=== PATIENT | male | born 1960 | race Caucasian/White ===

== ENCOUNTER 2016-11-25 14:05 | Emergency (ER) | payer OTHER ==
[~2016-11-25] VITALS: Ht 175.3 cm; Wt 87.0 kg
[~2016-11-25 14:05] MED LIST: METO50TA16 PO; SIMV20TA2 PO; TACR1CAP5 PO
[2016-11-25 14:10] VITALS: Ht 175.3 cm; Wt 87.0 kg
[2016-11-25] MEDS ORDERED: AZAT50TA5 PO (14:35)
[2016-11-25] MEDS ORDERED: CEPHALEXIN MONOHYDRATE 250 MG CAP PO ONE (14:45)
[2016-11-25] MEDS ORDERED: SULFAMETHOXAZOLE/TRIMETHOPRIM DS 800/160MG TAB PO ONE (14:45)
[2016-11-25] MEDS ORDERED: XYLOCAINE 1%/SOD BICARB 20 ML VIAL INFIL ONE (14:45)
[2016-11-25] MEDS ORDERED: PRG1 PO (14:59)
[2016-11-25] MEDS ORDERED: SULF800T23 PO (15:24)
[2016-11-25] MEDS ORDERED: CEPH500C2 PO (15:24)
--- NOTE | 2016-11-25 15:25 | EMERGENCY ROOM VISIT NOTE ---
ED Visit Note First contact with patient: 14:18 CHIEF COMPLAINT: Draining lump on the mid back 4 days HISTORY OF PRESENT ILLNESS: Patient is a 56-year-old white male who presents to emergency department for evaluation of an abscess on his mid back that he noticed a couple of days ago. He states that he developed a lump on his upper back about 4-5 days ago. He states that last the it opened up and drained bloody puslike material. He notes that it is slightly tender. He denies a prior history of skin infections or abscesses. He denies any fever or chills. No fever, chills, or loss of appetite. Patient is not aware of any injury to the area preceding the infection. REVIEW OF SYSTEMS: Review of systems as per HPI. All other systems reviewed were negative. 10 systems reviewed. PMH: Electronic medical records are reviewed and summarized as above/below. See Problem List. SOCIAL HISTORY: Patient lives at home. Unemployed. Smoker. PHYSICAL EXAM: Vital Signs: Reviewed Nurse's notes. CONSTITUTIONAL: Patient is a well-appearing 56-year-old white male who is awake and alert and in no acute distress. INTEGUMENTARY: Examination of the patient's midline upper back show an erythematous, indurated cystic structure, with a scabbed over area centrally. Total diameter measures 6 cm, however the central portion is fluctuant. It is not actively draining. There is a zone of inflammation around it buy no lymphangitis. EMERGENCY DEPARTMENT COURSE: Using saline and Betadine cleansing, lidocaine anesthesia, and sterile technique, the abscess cavity was incised with a number 11 scalpel blade. Some purulent material was noted and was cultured, predominantly there was sebaceous material present, which was removed. The abscess cavity was irrigated copiously using normal saline solution, and then packed with plain gauze packing dipped in Betadine. Patient was placed on Keflex and Bactrim pending cultures. He was given his first dose in the emergency department. Differential diagnosis included abscess, infected sebaceous cyst, foreign body, among others. Wound care measures were discussed. He was encouraged to return to the emergency department in 48 hours for the results of his cultures and for packing removal. Problem List Medical Problems: (1) ASH (acute kidney injury) Status: Resolved (2) CAD (coronary artery disease) Status: Chronic (3) Chest wall pain Status: Resolved (4) Chronic back pain Status: Chronic (5) Chronic Hepatitis C W/O Hepatic Coma Status: Chronic (6) Chronic Kidney Disease, Unspecified Status: Chronic (7) Depressive Disorder Nec Status: Chronic (8) Hyperkalemia Status: Resolved (9) Hyperlipidemia Nec/Nos Status: Chronic (10) Hypertension Nos Status: Chronic (11) Hypothyroidism Nos Status: Chronic (12) Liver cancer Status: Resolved (13) UT (myocardial infarction) Status: Resolved (14) Pacemaker Status: Chronic (15) Precordial chest pain Status: Resolved (16) Spinal stenosis, lumbar region, with neurogenic claudication Status: Chronic (17) Symptomatic bradycardia Status: Resolved (18) Third degree heart block Status: Resolved Surgical Problems: (1) Cardiac Pacemaker In Situ Status: Chronic (2) H/O heart artery stent Status: Resolved (3) History of cervical spinal arthrodesis Status: Resolved (4) History of lumbar fusion Status: Resolved (5) Liver transplanted Status: Resolved (6) Presence Of Prosthetic Heart Valve Status: Resolved Current/Historical Medications Scheduled Azathioprine (Imuran), 50 MG PO DAILY Cephalexin Monohydrate (Keflex), 500 MG PO QID Levothyroxine Sodium (Levothyroxine Sodium), 25 MCG PO DAILY Lisinopril (Zestril), 10 MG PO DAILY Sulfa/Trimethoprim (Bactrim Ds 800MG/160MG), 1 TAB PO BID Tacrolimus (Tacrolimus), 4 MG PO BID Scheduled PRN Ibuprofen (Motrin), 400 MG PO TID PRN for Pain Allergies Coded Allergies: Codeine (Verified Allergy, Intermediate, RASH, N/V, 05/26/14) Acetaminophen (Verified Adverse Reaction, Unknown, LIVER DISEASE-PT CAN NOT TAKE D/T LIVER TRANSPLANT, 05/26/14) Vital Signs Date Time Temp Pulse Resp B/P Pulse Ox O2 Delivery O2 Flow Rate FiO2 11/25/16 15:54 36.6 88 16 145/66 96 11/25/16 14:10 36.6 108 16 159/98 94 Room Air Medications Administered Medications (Trade) Dose Ordered Sig/Juanita Route Start Time Stop Time Status Last Admin Dose Admin Lidocaine HCl (Buffered Lidocaine 1% Inj) 20 ml ONE ONCE INFIL 11/25/16 14:45 11/25/16 14:48 DC 11/25/16 15:01 20 ML Cephalexin Monohydrate (Keflex Cap) 500 mg NOW ONCE PO 11/25/16 14:45 11/25/16 14:48 DC 11/25/16 15:02 500 MG Trimethoprim/ Sulfamethoxazole (Septra Ds 800/ 160MG Tab) 1 tab NOW ONCE PO 11/25/16 14:45 11/25/16 14:48 DC 11/25/16 15:01 1 TAB Departure Information Impression Primary Impression: Infected sebaceous cyst Prescriptions Sulfa/Trimethoprim (Bactrim Ds 800MG/160MG) Tab 1 TAB PO BID, #20 TAB Prov: Lena Guardado PA 11/25/16 Cephalexin Monohydrate (KEFLEX) 500 Mg Cap 500 MG PO QID, #40 CAP Prov: Lena Guardado PA 11/25/16 Referrals Paul Angeles M.D.([facility]) (PCP) Patient Instructions My [facility] Additional Instructions Cephalexin(Keflex) 500mg: Take one pill four times daily for 10 days for your skin infection. All antibiotics can cause diarrhea. If this occurs and you feel worse or it does not resolve in 1-2 days follow up with your doctor or return to the Emergency Department as this could be signs of serious underlying problems. Any medication can cause an allergic reaction, stop the pills immediately and return to the ER for rash, hives, breathing difficulties, or swelling. Trimethoprim-Sulfamethoxazole(Bactrim DS): Take one pill twice daily for 10 days for your skin infection. All antibiotics can cause diarrhea. If this occurs and you feel worse or it does not resolve in 1-2 days follow up with your doctor or return to the Emergency Department as this could be signs of serious underlying problems. Any medication can cause an allergic reaction, stop the pills immediately and return to the ER for rash, hives, breathing difficulties, or swelling. Ibuprofen(Motrin, Advil) may be used for fever or pain. Use 600mg every six hours as needed. Take with food. Avoid using more than 2400mg in a 24 hour period. Do not use 2400mg per day for more than three consecutive days without physician direction. Prolonged inappropriate use can lead to stomach upset or ulcers. Warm compresses to the affected area 4 times daily for 15-20 minutes. Dressing changes daily, more often if it becomes saturated or soiled. May be the starting tomorrow. Be careful to not remove the packing material when bathing or changing the dressing. Rest and drink plenty of fluids. Continue current medications. Return to the ER in 48 hours for packing removal and wound recheck, immediately for severe pain, persistent fevers, spreading redness, or any worsening of your condition. Follow up with your primary physician next week for further care and management. You may need to be seen by surgery to have the entire cyst removed once the infection has resolved.
[2016-11-25 15:54] VITALS: BP 145/66; PULSE 88; TEMP 36.6; O2SAT 96
[2016-11-25] MEDS ORDERED: IBUP-1459 PO (21:19)
[2016-11-25] MEDS ORDERED: LEVO25TA5 PO (21:20)
[2016-11-25] MEDS ORDERED: LISI-461 PO (21:21)
[2017-02-08] MEDS ORDERED: LSN20 PO (15:28)
== END 2016-11-25 15:30 | disposition home or self-care (01) ==
LOC: C.EDB 14:08 → C.EDD 15:30
DX: L72.9 Follicular cyst of the skin and subcutaneous tissue, unspecified (principal); I12.9 Hypertensive chronic kidney disease with stage 1 through stage 4 chronic kidney disease, or unspecified chronic kidney disease; N18.9 Chronic kidney disease, unspecified; E78.5 Hyperlipidemia, unspecified; B18.2 Chronic viral hepatitis C; E03.9 Hypothyroidism, unspecified; I25.10 Atherosclerotic heart disease of native coronary artery without angina pectoris; F32.9 Major depressive disorder, single episode, unspecified; I25.2 Old myocardial infarction; G89.29 Other chronic pain; M48.06 Spinal stenosis, lumbar region; F17.200 Nicotine dependence, unspecified, uncomplicated; Z95.0 Presence of cardiac pacemaker; Z95.2 Presence of prosthetic heart valve; Z98.1 Arthrodesis status; Z98.61 Coronary angioplasty status; Z94.4 Liver transplant status; Z79.899 Other long term (current) drug therapy; Z88.5 Allergy status to narcotic agent; Z88.6 Allergy status to analgesic agent

== ENCOUNTER 2017-02-06 13:57 | Inpatient (IN) | payer OTHER ==
[~2017-02-06] VITALS: Ht 175.3 cm; Wt 87.1 kg
[~2017-02-06 13:57] MED LIST changes: +AZAT50TA5 PO; +CEPH500C2 PO; +IBUP-1459 PO; +LEVO25TA5 PO; +LISI-461 PO; -METO50TA16 PO; -SIMV20TA2 PO; +SULF800T23 PO; +TACR1CAP14 PO; -TACR1CAP5 PO
[2017-02-06] MEDS ORDERED: SODIUM CHLORIDE 0.9% 1000ML 1,000 ML IV STA (15:03)
[2017-02-06] MEDS ORDERED: NITROGLYCERIN OINT 2% 1GM PACKET EXT ONE (15:15)
--- NOTE | 2017-02-06 15:30 | DIAGNOSTIC IMAGING REPORT ---
CHEST ONE VIEW PORTABLE CLINICAL HISTORY: Atypical chest pain COMPARISON STUDY: 04/07/2016 FINDINGS: The heart is normal in size. There is no failure. There is no focal pulmonary consolidation. As a left subclavian dual-chamber central venous pacemaker present. There are postsurgical changes in the cervical spine. There is blunting of the left lateral costophrenic angle, possibly indicating a tiny effusion.[ IMPRESSION: Blunting of the left lateral costophrenic angle. Otherwise no acute findings. Electronically signed by: Rubens Barajas M.D. 02/06/2017 3:28 PM Dictated Date/Time: 02/06/2017 3:27 PM
[2017-02-06 15:43] LABS: URINE APPEARANCE CLEAR (CLEAR); URINE BILIRUBIN NEG (NEG); URINE COLOR YELLOW; URINE EPITHELIAL CELL AUTO 0-5 /lpf (0-5); URINE NITRITE NEG (NEG); URINE PH >= 9.0 (4.5-7.5); URINE SPECIFIC GRAVITY 1.013 (1.000-1.030); UROBILINOGEN NEG (NEG); ZZUR CULT IF INDIC CLEAN CATCH NO
[2017-02-06 15:46] LABS: BASO % 0.2 %; BASO ABS # 0.01 K/uL (0-0.2); COMPLETE YES; EOS % 2.1 %; HEMATOCRIT 45.4 % (42-52); IG% 0.4 %; LYMPH % 16.8 %; MEAN CELL VOLUME 92.5 fL (80-100); MEAN CORPUSCULAR HGB CONC 34.6 g/dl (32-36); MEAN PLATELET VOLUME 9.8 fL (7.4-10.4); MONO % 7.8 %; NEUT % 72.7 %; PLATELET COUNT 145 K/uL (130-400); RED BLOOD COUNT 4.91 M/uL (4.7-6.1); WHITE BLOOD COUNT 5.36 K/uL (4.8-10.8)
--- NOTE | 2017-02-06 15:52 | DIAGNOSTIC IMAGING REPORT ---
CT HEAD WITHOUT CONTRAST (CT) CLINICAL HISTORY: Headache COMPARISON STUDY: 05/26/2014 TECHNIQUE: Axial CT of the brain is performed from the vertex to the skull base. IV contrast was not administered for this examination. CT DOSE: 1755.62 mGy.cm FINDINGS: No intra or extra-axial mass lesions are visualized. There is no CT evidence of acute cortical infarction. There is no evidence of midline shift. There is no acute hemorrhage. No calvarial fractures are visualized. There is no evidence of pathologic ventricular dilatation. There is no evidence of acute sinusitis IMPRESSION: No acute intracranial findings Electronically signed by: Rubens Barajas M.D. 02/06/2017 3:50 PM Dictated Date/Time: 02/06/2017 3:48 PM
[2017-02-06 15:54] LABS: MANUAL MICROSCOPIC REQUIRED? NO; REVIEW REQ? NO; SULFASALICYLIC ACID NEG (NEG)
[2017-02-06 15:55] LABS: INR 0.9 (0.9-1.1); PROTHROMBIN TIME (PATIENT) 10.1 SECONDS (9.0-12.0)
[2017-02-06] MEDS ORDERED: METO50TA16 PO (15:59)
[2017-02-06] MEDS ORDERED: ATOR-22 PO (15:59)
--- NOTE | 2017-02-06 16:03 | DIAGNOSTIC IMAGING REPORT ---
ABDOMEN AND PELVIS CT WITHOUT CONTRAST CT DOSE: HISTORY: Generalized abdominal pain. Right-sided flank pain. TECHNIQUE: Multiaxial CT images of the abdomen and pelvis were performed without the use of intravenous and oral contrast according to the standard department stone protocol. COMPARISON STUDY: Abdomen and pelvis CT 05/21/2010. FINDINGS: The lung bases are clear. Pacemaker wires are noted. No pneumoperitoneum. No pneumatosis. Patchy sclerosis with the right femoral head consistent with avascular necrosis. Posterior decompression and fusion from L2 through S1 with pedicle screws and rods. There is also a small focal area of sclerosis within the left femoral head which may also represent an area of avascular necrosis. No evidence for femoral head collapse. Old, healed left-sided rib fractures. Normal bladder. Normal appendix. Status post liver transplant. The gallbladder is surgically absent. The spleen remains enlarged but is decreased in size compared the prior study. The spleen measures 13.5 cm in length. The adrenal glands, pancreas, and kidneys are unremarkable. No renal stones or hydronephrosis. Decrease in size in the splenic varices. No retroperitoneal lymphadenopathy. Small fat-containing umbilical hernia. The umbilical varices have almost completely resolved. Suboptimal evaluation for bowel pathology due to the lack of intravenous and oral contrast. However, there is no evidence for bowel obstruction. Fluid-filled colon. Mild superior endplate compression deformity at L5 is likely old. IMPRESSION: 1. Fluid-filled colon. This favors a gastroenteritis. 2. No evidence for bowel obstruction. 3. Status post liver transplant with improvement in the abdominal varices and splenomegaly. 4. Bilateral femoral head avascular necrosis, right greater than left. No evidence for femoral head collapse. 5. Additional findings as described above. Electronically signed by: Chan Flores M.D. 02/06/2017 4:01 PM Dictated Date/Time: 02/06/2017 3:49 PM
[2017-02-06] MEDS ORDERED: LABETALOL HCL IV 5 MG/ML 20ML IV STA (16:05)
[2017-02-06] MEDS ORDERED: ONDANSETRON INJ 2 MG/ML 2 ML VIAL IV STA (16:28)
[2017-02-06] MEDS ORDERED: MoRPHine SULFATE 4 MG/ML 1 ML CARP\\VIAL IV STA (16:28)
[2017-02-06 16:38] LABS: ALB/GLOB RATIO 1.1 (0.9-2); ALKALINE PHOSPHATASE 122 U/L (45-117); ALT/SGPT 58 U/L (12-78); AST/SGOT 45 U/L (15-37); BLOOD UREA NITROGEN 18 mg/dl (7-18); BUN/CREATININE RATIO 13.6 (10-20); C-REACTIVE PROTEIN < 0.29 mg/dl (0-0.29); CALCIUM 8.4 mg/dl (8.5-10.1); CHLORIDE 99 mmol/L (98-107); GLUCOSE 145 mg/dl (70-99); MAGNESIUM 2.3 mg/dl (1.8-2.4); POTASSIUM 3.7 mmol/L (3.5-5.1); SODIUM 144 mmol/L (136-145)
[2017-02-06 16:40] LABS: LYME DISEASE AB IGG NEG (NEG); LYME DISEASE AB IGM NEG (NEG)
[2017-02-06 16:47] LABS: CARBON DIOXIDE 42 mmol/L (21-32)
--- NOTE | 2017-02-06 16:48 | EMERGENCY ROOM VISIT NOTE ---
History First contact with patient: 14:47 Chief Complaint: PAIN (GENERALIZED) Stated Complaint: CHEST PAIN, REAL BAD HEADACHES History of Present Illness The patient is a 56 year old male who presents to the Emergency Department by private vehicle for evaluation of his chest pain and headaches. He's had headaches for the past 3 days. He reports that he developed chest pain last evening. He reports that to this point, his headache is worse than his chest pain. He does have a significant past medical history of HI 2 as well as a pacemaker in place secondary to complete heart block. He denies exertional pain. He reports a "stabbing" pain in his chest. In addition, he reports a lingering total headache rating his toe discomfort as a 9/10. The patient has a history is complicated by liver transplant performed at [facility] in 2009. He does take his antirejection medications daily. He does not take any medications for his blood pressure. Patient denies any fevers , chills, recent upper respiratory infections, blurry vision, double vision, slurred speech, facial droop, unilateral weakness/numbness, nausea, vomiting, or abdominal pain. He has reported some diarrhea most recently. Review of Systems A complete 10-point Review of Systems was discussed with the patient, with pertinent positives and negatives listed in the History of Present Illness. All remaining Review of Systems questions can be considered negative unless otherwise specified. Past Medical/Surgical History Medical Problems: (1) CAD (coronary artery disease) (2) Chest pain (3) Chest wall pain (4) Chronic back pain (5) Chronic Hepatitis C W/O Hepatic Coma (6) Chronic Kidney Disease, Unspecified (7) Cirrhosis of liver (8) CKD (chronic kidney disease), stage III (9) Complete heart block (10) Depressive Disorder Nec (11) DM type 2 (diabetes mellitus, type 2) (12) Dyslipidemia (13) Hepatitis C, chronic (14) Hepatocellular carcinoma (15) Hyperkalemia (16) Hyperlipidemia Nec/Nos (17) Hypertension Nos (18) Hypertensive urgency (19) Hypothyroidism Nos (20) Liver cancer (21) Long QT syndrome (22) Lumbago (23) HI (myocardial infarction) (24) Pacemaker (25) Pacemaker (26) Precordial chest pain (27) Spinal stenosis, lumbar region, with neurogenic claudication (28) Symptomatic bradycardia Surgical Problems: (1) Cardiac Pacemaker In Situ (2) H/O heart artery stent (3) H/O neck surgery (4) History of back surgery (5) History of cervical spinal arthrodesis (6) History of lumbar fusion (7) Liver transplanted (8) S/P coronary artery stent placement (9) S/P liver transplant Family History Patient reports no known family medical history. Social History Smoking Status: Current Every Day Smoker Smokeless Tobacco Use: No Alcohol Use: occasionally Drug Use: none Marital Status: Housing Status: other Occupation Status: other Current/Historical Medications Scheduled Aspirin (Ecotrin Low Strength), 1 TAB PO DAILY Atorvastatin (Lipitor), 20 MG PO QAM Azathioprine (Imuran), 50 MG PO DAILY Citalopram Hydrobromide (Celexa), 20 MG PO DAILY Levothyroxine Sodium (Levothyroxine Sodium), 25 MCG PO DAILY Lisinopril (Zestril), 10 MG PO DAILY Metoprolol Tartrate (Lopressor) (Lopressor), 50 MG PO BID Multivitamin (Multivitamin), 1 TAB PO DAILY Ranitidine (Zantac), 150 MG PO BID Tacrolimus (Tacrolimus), 4 MG PO BID Scheduled PRN Nitroglycerin (Nitrostat), 0.4 MG UT UD PRN for Chest Pain Allergies Coded Allergies: Codeine (Verified Allergy, Intermediate, RASH, N/V, 02/06/17) Acetaminophen (Verified Adverse Reaction, Unknown, LIVER DISEASE-PT CAN NOT TAKE D/T LIVER TRANSPLANT, 02/06/17) Physical Exam Vital Signs Date Time Temp Pulse Resp B/P Pulse Ox O2 Delivery O2 Flow Rate FiO2 02/06/17 17:52 99 Room Air 02/06/17 17:20 81 02/06/17 17:15 78 16 156/96 99 Nasal Cannula 4.0 02/06/17 17:01 Nasal Cannula 4.0 02/06/17 17:01 82 20 155/101 93 Room Air 02/06/17 16:45 79 16 157/95 95 Room Air 02/06/17 16:30 79 16 175/93 96 Room Air 02/06/17 16:17 94 16 157/107 96 Room Air 02/06/17 15:52 94 16 195/118 96 Room Air 02/06/17 14:55 96 Room Air 02/06/17 14:53 95 24 205/132 96 Room Air 02/06/17 13:59 36.9 60 20 201/134 96 Room Air Pain Rating (0-10): 9 Physical Exam VITAL SIGNS - Vital signs and nursing notes were reviewed. GENERAL - 56-year-old male appearing his stated age who is in no acute distress. Communicates well with provider and answers questions appropriately. HEAD - Normocephalic, Atraumatic. No Camargo's Sign or Raccoon's Eyes. No depressed skull fractures palpable. EYES - PERRL with EOMI bilaterally. Sclera anicteric. Palpebral conjunctiva pink and moist with no injection noted. EARS - No deformities of external structures noted on gross examination bilaterally. No pain elicited with palpation of the tragus bilaterally. External auditory canals without discharge or otorrhea. Tympanic membranes pearly gonzalez without retraction or bulging. NOSE - Midline and without cyanosis. No epistaxis or purulent drainage noted. Septum midline without deviation or septal hematoma noted. MOUTH/OROPHARYNX - Without perioral cyanosis. Buccal mucosa pink and moist and without leukoplakia. Tongue midline with equal elevation of palate bilaterally. No tonsillar hypertrophy, erythema, or exudates noted NECK - Neck with FROM. Supple to palpation. No lymphadenopathy noted. No nuchal rigidity. LUNGS - Chest wall symmetric without accessory muscle use, intercostals retractions, or central cyanosis. Normal vesicular breath sounds CTA B/L. No wheezes, rales, or rhonchi appreciated. CARDIAC - RRR with S1/S2. No murmur, rubs, or gallops appreciated. ABDOMEN - Abdominal contour flat and without pulsations or visible masses. BS normoactive all four quadrants. No tenderness, palpable masses, hepatosplenomegaly, or ascites noted. EXTREMITIES - No pretibial edema present. +3/5 radial and dorsalis pedis pulses palpated throughout. FROM with no tremors, fasciculations, or clonus noted on PROM throughout. +5/5 strength noted in UE/LE bilaterally. NEUROLOGIC - Cranial nerves II through XII grossly intact. Sensory intact to light touch throughout. Patellar reflexes +2/4. Patient able to perform rapid alternating movements appropriately. Negative Pronator Drift. PSYCH - A&Ox3 and cooperates fully with examiner. Pt is very pleasant and interacts well with examiner. Medical Decision & Procedures ER Provider Diagnostic Interpretation: Radiological imaging and reports were reviewed by myself. Radiologist's Interpretation as follows: CT HEAD WITHOUT CONTRAST (CT) CLINICAL HISTORY: Headache COMPARISON STUDY: 05/26/2014 TECHNIQUE: Axial CT of the brain is performed from the vertex to the skull base. IV contrast was not administered for this examination. CT DOSE: 1755.62 mGy.cm FINDINGS: No intra or extra-axial mass lesions are visualized. There is no CT evidence of acute cortical infarction. There is no evidence of midline shift. There is no acute hemorrhage. No calvarial fractures are visualized. There is no evidence of pathologic ventricular dilatation. There is no evidence of acute sinusitis IMPRESSION: No acute intracranial findings CHEST ONE VIEW PORTABLE CLINICAL HISTORY: Atypical chest pain COMPARISON STUDY: 04/07/2016 FINDINGS: The heart is normal in size. There is no failure. There is no focal pulmonary consolidation. As a left subclavian dual-chamber central venous pacemaker present. There are postsurgical changes in the cervical spine. There is blunting of the left lateral costophrenic angle, possibly indicating a tiny effusion.[ IMPRESSION: Blunting of the left lateral costophrenic angle. Otherwise no acute findings. ABDOMEN AND PELVIS CT WITHOUT CONTRAST CT DOSE: HISTORY: Generalized abdominal pain. Right-sided flank pain. TECHNIQUE: Multiaxial CT images of the abdomen and pelvis were performed without the use of intravenous and oral contrast according to the standard department stone protocol. COMPARISON STUDY: Abdomen and pelvis CT 05/21/2010. FINDINGS: The lung bases are clear. Pacemaker wires are noted. No pneumoperitoneum. No pneumatosis. Patchy sclerosis with the right femoral head consistent with avascular necrosis. Posterior decompression and fusion from L2 through S1 with pedicle screws and rods. There is also a small focal area of sclerosis within the left femoral head which may also represent an area of avascular necrosis. No evidence for femoral head collapse. Old, healed left-sided rib fractures. Normal bladder. Normal appendix. Status post liver transplant. The gallbladder is surgically absent. The spleen remains enlarged but is decreased in size compared the prior study. The spleen measures 13.5 cm in length. The adrenal glands, pancreas, and kidneys are unremarkable. No renal stones or hydronephrosis. Decrease in size in the splenic varices. No retroperitoneal lymphadenopathy. Small fat-containing umbilical hernia. The umbilical varices have almost completely resolved. Suboptimal evaluation for bowel pathology due to the lack of intravenous and oral contrast. However, there is no evidence for bowel obstruction. Fluid-filled colon. Mild superior endplate compression deformity at L5 is likely old. IMPRESSION: 1. Fluid-filled colon. This favors a gastroenteritis. 2. No evidence for bowel obstruction. 3. Status post liver transplant with improvement in the abdominal varices and splenomegaly. 4. Bilateral femoral head avascular necrosis, right greater than left. No evidence for femoral head collapse. 5. Additional findings as described above. Laboratory Results 02/06/17 15:20 Red Blood Count 4.91, Mean Corpuscular Volume 92.5, Mean Corpuscular Hemoglobin 32.0, Mean Corpuscular Hemoglobin Concent 34.6, Mean Platelet Volume 9.8, Neutrophils (%) (Auto) 72.7, Lymphocytes (%) (Auto) 16.8, Monocytes (%) (Auto) 7.8, Eosinophils (%) (Auto) 2.1, Basophils (%) (Auto) 0.2, Neutrophils # (Auto) 3.90, Lymphocytes # (Auto) 0.90, Monocytes # (Auto) 0.42, Eosinophils # (Auto) 0.11, Basophils # (Auto) 0.01 02/06/17 15:20 Test 02/06/17 00:00 02/06/17 15:20 02/06/17 17:58 Carboxyhemoglobin 2.7 % THgb White Blood Count 5.36 K/uL (4.8-10.8) Red Blood Count 4.91 M/uL (4.7-6.1) Hemoglobin 15.7 g/dL (14.0-18.0) Hematocrit 45.4 % (42-52) Mean Corpuscular Volume 92.5 fL (80-100) Mean Corpuscular Hemoglobin 32.0 pg (25-34) Mean Corpuscular Hemoglobin Concent 34.6 g/dl (32-36) Platelet Count 145 K/uL (130-400) Mean Platelet Volume 9.8 fL (7.4-10.4) Neutrophils (%) (Auto) 72.7 % Lymphocytes (%) (Auto) 16.8 % Monocytes (%) (Auto) 7.8 % Eosinophils (%) (Auto) 2.1 % Basophils (%) (Auto) 0.2 % Neutrophils # (Auto) 3.90 K/uL (1.4-6.5) Lymphocytes # (Auto) 0.90 K/uL (1.2-3.4) Monocytes # (Auto) 0.42 K/uL (0.11-0.59) Eosinophils # (Auto) 0.11 K/uL (0-0.5) Basophils # (Auto) 0.01 K/uL (0-0.2) RDW Standard Deviation 43.9 fL (36.4-46.3) RDW Coefficient of Variation 12.9 % (11.5-14.5) Immature Granulocyte % (Auto) 0.4 % Immature Granulocyte # (Auto) 0.02 K/uL (0.00-0.02) Erythrocyte Sedimentation Rate 18 mm/hr (0-14) Prothrombin Time 10.1 SECONDS (9.0-12.0) Prothromb Time International Ratio 0.9 (0.9-1.1) Activated Partial Thromboplast Time 27.2 SECONDS (21.0-31.0) Partial Thromboplastin Ratio 1.0 Urine Color YELLOW Urine Appearance CLEAR (CLEAR) Urine pH >= 9.0 (4.5-7.5) Urine Specific [place] 1.013 (1.000-1.030) Urine Protein NEG (NEG) Urine Glucose (UA) NEG (NEG) Urine Ketones NEG (NEG) Urine Occult Blood NEG (NEG) Urine Nitrite NEG (NEG) Urine Bilirubin NEG (NEG) Urine Urobilinogen NEG (NEG) Urine Leukocyte Esterase NEG (NEG) Urine WBC (Auto) 0 /hpf (0-5) Urine RBC (Auto) 0-4 /hpf (0-4) Urine Hyaline Casts (Auto) 0 /lpf (0-5) Urine Epithelial Cells (Auto) 0-5 /lpf (0-5) Urine Bacteria (Auto) NEG (NEG) Anion Gap 3.0 mmol/L (3-11) Est Creatinine Clear Calc Drug Dose 72.0 ml/min Estimated GFR () 71.7 Estimated GFR (Non- 61.9 BUN/Creatinine Ratio 13.6 (10-20) Calcium Level 8.4 mg/dl (8.5-10.1) Magnesium Level 2.3 mg/dl (1.8-2.4) Total Bilirubin 0.3 mg/dl (0.2-1) Aspartate Amino Transf (AST/SGOT) 45 U/L (15-37) Alanine Aminotransferase (ALT/SGPT) 58 U/L (12-78) Alkaline Phosphatase 122 U/L (45-117) C-Reactive Protein < 0.29 mg/dl (0-0.29) Total Protein 7.3 gm/dl (6.4-8.2) Albumin 3.8 gm/dl (3.4-5.0) Globulin 3.5 gm/dl (2.5-4.0) Albumin/Globulin Ratio 1.1 (0.9-2) Lipase 162 U/L (73-393) Thyroid Stimulating Hormone (TSH) 4.090 uIu/ml (0.300-4.500) Chemistry Specimen Hemolysis Urine Opiates Screen NEG (NEG) Urine Methadone, Qualitative NEG (NEG) Urine Barbiturates NEG (NEG) Urine Phencyclidine (PCP) Level NEG (NEG) Ur Amphetamine/Methamphetamine NEG (NEG) MDMA (Ecstasy) Screen NEG (NEG) Urine Benzodiazepines Screen NEG (NEG) Urine Cocaine Metabolite NEG (NEG) Urine Marijuana (THC) NEG (NEG) Lyme Disease IgG Antibody NEG (NEG) Lyme Disease IgM Antibody NEG (NEG) Venous Blood pH 7.51 (7.36-7.41) Venous Blood Partial Pressure CO2 51 mmHg (38.0-50.0) Venous Blood Partial Pressure O2 61 mmHg Venous Blood HCO3 40 mmol/L Venous Blood Oxygen Saturation 90.7 % Venous Blood Base Excess 14.4 mmol/L Medications Administered Medications (Trade) Dose Ordered Sig/Juanita Route Start Time Stop Time Status Last Admin Dose Admin Nitroglycerin 1 inch 1 inch NOW ONCE EXT 02/06/17 15:15 02/06/17 15:16 DC 02/06/17 15:24 1 INCH Sodium Chloride (Nss 1000ml) 1,000 ml @ 80 mls/hr [id number] STAT IV 02/06/17 15:03 02/06/17 19:38 DC 02/06/17 15:52 80 MLS/HR Labetalol HCl (Normodyne IV) 10 mg NOW STAT IV 02/06/17 16:05 02/06/17 16:07 DC 02/06/17 16:17 10 MG Morphine Sulfate (MoRPHine SULFATE INJ) 4 mg NOW STAT IV 02/06/17 16:28 02/06/17 16:29 DC 02/06/17 16:44 4 MG Ondansetron HCl (Zofran Inj) 4 mg NOW STAT IV 02/06/17 16:28 02/06/17 16:29 DC 02/06/17 16:43 4 MG Procedure Patient was placed on the environmental monitoring technician and monitored throughout the entire extent of their stay. In addition, the patient's pulse oximetry was monitored throughout the entire stay. Any abnormalities or aberrancies were addressed appropriately. ECG Indication: chest pain Rate (beats per minute): 95 Rhythm: other Findings: paced rhythm (replaced SR noted on 04/07/2016.) ED Course Patient was seen and evaluated by myself. Labs were drawn, saline lock in place. Previous or department visit notes were reviewed. CT the head and abdomen were obtained. Chest x-ray and EKGs were obtained. Patient was treated with 1 inch of Nitropaste. Maintenance fluids at 80 mL per hour were initiated. Upon return from CT, the patient is still having elevated blood pressure despite the nitroglycerin. Patient was treated with 10 mg labetalol intravenously. Imaging results above. Laboratory results demonstrate no acute leukocytosis, worrisome anemia, or bandemia. The patient has no significant electrolyte abnormalities. Patient was reevaluated and still has a headache, but reports that his chest pain has improved. He was treated with 4 mg morphine and 4 mg Zofran. Troponin is borderline. Remaining cardiac enzymes are negative. CO2 was elevated. Carboxyhemoglobin and VBG were ordered. Case was discussed with case management. Patient was admitted to [facility] for further evaluation and management. Patient admitted in stable condition. Medical Decision Given the patient's presentation and stated complaint, I did elect to perform the above-mentioned workup. The patient resents to the emergency Department with complaints of chest pain as well as a headache. The patient has a couple. Past medical history as reported in history of present illness. His exam is otherwise unremarkable. He has no focal neurological deficits. CT the brain was unremarkable. CT the head and pelvis didn't straight no acute findings. He has no fever leukocytosis. He has no meningeal findings on exam. His chest pain resolved with decrease in his blood pressure as well as vasodilation with nitroglycerin. Patient's headache resolved with IV pain medication. He was found to have an elevated CO2 level which is certainly interesting given the fact patient is not acidotic or have any neurological changes. He has been reportedly sleepy lately. He reports he is here which is been using his bedroom recently. VBG and carboxyhemoglobin were added. Patient was admitted in stable condition to the [facility]. In the evaluation and treatment of this patient, the following differential diagnoses were considered: Migraine Headache, Intracranial Hemorrhage, Subdural Hematoma, Subarachnoid Hemorrhage, Cerebral Aneurysm, Temporal/Giant Cell Arteritis, Tension Headache, Meningitis, Encephalitis, Hydrocephalus, HI, ASC, Dysrhythmia, Angina, Mediastinitis, GERD, Esophagitis, PE, Pneumonia, Bronchitis , Costochondritis, Rib Fracture, Zoster. Impression Primary Impression: Chest pain Additional Impressions: Hypertension Headache Departure Information Dispostion Admitted as an inpatient Condition FAIR Referrals Paul Angeles M.D.([facility]) (PCP) Patient Instructions My [facility] Problem Qualifiers Primary Impression: Chest pain Chest pain type: precordial pain Qualified Codes: R07.2 - Precordial pain Additional Impressions: Hypertension Hypertension type: essential hypertension Qualified Codes: I10 - Essential ( primary) hypertension Headache Headache type: unspecified Headache chronicity pattern: unspecified pattern Intractability: not intractable Qualified Codes: R51 - Headache
[2017-02-06 17:52] VITALS: O2SAT 99; Ht 175.3 cm; Wt 87.1 kg
[2017-02-06 18:14] LABS: VEN BLD GAS O2 SATURATION 90.7 %; VEN BLOOD GAS BASE EXCESS 14.4 mmol/L
[2017-02-06] MEDS ORDERED: ONDANSETRON INJ 2 MG/ML 2 ML VIAL IV PRN (18:30)
[2017-02-06] MEDS ORDERED: CITA20TA9 PO (18:44)
[2017-02-06] MEDS ORDERED: NTRSLP4 UT (18:44)
[2017-02-06] MEDS ORDERED: ZNTT/150 PO (18:44)
[2017-02-06] MEDS ORDERED: ASPI-428 PO (18:44)
[2017-02-06] MEDS ORDERED: MULT-506 PO (18:44)
[2017-02-06] MEDS ORDERED: NITROGLYCERIN OINT 2% 1GM PACKET EXT SCH (18:45)
[2017-02-06] MEDS ORDERED: GLUCOSE 10 TABS/TUBE PO PRN (18:45)
[2017-02-06] MEDS ORDERED: GLUCAGON FOR INJ 1 MG VIAL SQ PRN (18:45)
[2017-02-06] MEDS ORDERED: GLUCOSE 40% GEL 15 GM TUBE PO PRN (18:45)
[2017-02-06] MEDS ORDERED: DEXTROSE 50% 50 ML SYR IV PRN (18:45)
[2017-02-06 19:15] VITALS: BP 165/98; PULSE 78; TEMP 36.8; O2SAT 99
[2017-02-06] MEDS ORDERED: PROCHLORPERAZINE INJ 10 MG in SYRINGE 8 ML IV STA (19:36)
[2017-02-06] MEDS ORDERED: DiphenhydrAMINE HCL 50 MG/ML VIAL IV STA (19:38)
[2017-02-06] MEDS ORDERED: ASPIRIN 81 MG CHEW PO STA (19:38)
--- NOTE | 2017-02-06 19:43 | History and Physical ---
History & Physical Date & Time of Service: Feb 06, 2017 at 18:45 Chief Complaint: Chest Pain, Real Bad Headaches Primary Care Physician: Paul Angeles M.D.([facility]) History of Present Illness Source: patient, clinic records, hospital records This is a 56 year old male with PMH of CAD s/p stent in 2010, long QT syndrome, s/p pacemaker, h/o hepatitis C resulting in cirrhosis complicated by HCC s/p liver transplant, hyperlipidemia, DM type 2, CKD stage III, who presents to the ED with chest pain and headache. Patient states he was sleeping for past 3 days and only got up to drink water. He did not take his medications for past 3 days. He was feeling normal before 3 days ago. Then yesterday he awoke with headache and chest pain. Pt states PORTER is worse than chest pain. PORTER is located in frontal and behind the bilateral orbits initially rated 10/10 now rated 9/10 after morphine given in ER. Denies prior PORTER's. He did not take medication for it at home. Pt reports left sided chest pain described as "sharp" and "tight" which is nonradiating. Not related to exertion. He thinks nitro paste in ER may have helped. Chest pain is now 5/10. Pt reports associated diaphoresis. Pt reports multiple episodes of liquid diarrhea yesterday and once today. Had abdominal cramping which was relieved with BM. Feeling mildly nauseous without vomiting. SOB is unchanged from baseline. Denies dizziness, vision change, weakness, numbness, speech difficulty, URI symptoms, cough, vomiting, hematochezia, melena, dysuria, frequency, edema, calf pain. He admits to using a space heater in his apartment. Pt was on antibiotics 1 month ago for infected skin cyst. No recent travel or sick contact. Pt was hospitalized back in Nov 2015 for chest pain, was seen by cardiology, had negative stress test. Past Medical/Surgical History Medical Problems: (1) CAD (coronary artery disease) Status: Chronic (2) Chest wall pain Status: Resolved (3) Chronic back pain Status: Chronic (4) Chronic Hepatitis C W/O Hepatic Coma Status: Chronic (5) Chronic Kidney Disease, Unspecified Status: Chronic (6) Cirrhosis of liver Status: Chronic (7) CKD (chronic kidney disease), stage III Status: Chronic (8) Complete heart block Status: Chronic (9) Depressive Disorder Nec Status: Chronic (10) DM type 2 (diabetes mellitus, type 2) Status: Chronic (11) Dyslipidemia Status: Chronic (12) Hepatitis C, chronic Status: Chronic (13) Hepatocellular carcinoma Status: Chronic (14) Hyperkalemia Status: Resolved (15) Hyperlipidemia Nec/Nos Status: Chronic (16) Hypertension Nos Status: Chronic (17) Hypothyroidism Nos Status: Chronic (18) Liver cancer Status: Resolved (19) Long QT syndrome Status: Chronic (20) Lumbago Status: Chronic (21) OR (myocardial infarction) Status: Resolved (22) Pacemaker Status: Chronic (23) Pacemaker Status: Chronic (24) Precordial chest pain Status: Resolved (25) Spinal stenosis, lumbar region, with neurogenic claudication Status: Chronic (26) Symptomatic bradycardia Status: Resolved Surgical Problems: (1) Cardiac Pacemaker In Situ Status: Chronic (2) H/O heart artery stent Status: Resolved (3) H/O neck surgery Status: Chronic (4) History of back surgery Status: Chronic (5) History of cervical spinal arthrodesis Status: Resolved (6) History of lumbar fusion Status: Resolved (7) Liver transplanted Status: Resolved (8) S/P coronary artery stent placement Status: Chronic (9) S/P liver transplant Status: Chronic Family History FH: COPD (chronic obstructive pulmonary disease) FATHER Social History Smoking Status: Current Every Day Smoker (1 pack per day) Smokeless Tobacco Use: No Alcohol Use: none Drug Use: none, other (pt denies drug use, however history of drug abuse noted in Epic) Housing status: lives with roommate Occupational Status: other Immunizations History of Influenza Vaccine: Yes History of Tetanus Vaccine?: Yes History of Pneumococcal: Yes History of Hepatitis B Vaccine: Yes Multi-Drug Resistant Organisms History of MDRO: No Allergies Coded Allergies: Codeine (Verified Allergy, Intermediate, RASH, N/V, 02/06/17) Acetaminophen (Verified Adverse Reaction, Unknown, LIVER DISEASE-PT CAN NOT TAKE D/T LIVER TRANSPLANT, 02/06/17) Home Medications Scheduled Aspirin (Ecotrin Low Strength), 1 TAB PO DAILY Atorvastatin (Lipitor), 20 MG PO QAM Azathioprine (Imuran), 50 MG PO DAILY Citalopram Hydrobromide (Celexa), 20 MG PO DAILY Levothyroxine Sodium (Levothyroxine Sodium), 25 MCG PO DAILY Lisinopril (Zestril), 10 MG PO DAILY Metoprolol Tartrate (Lopressor) (Lopressor), 50 MG PO BID Multivitamin (Multivitamin), 1 TAB PO DAILY Ranitidine (Zantac), 150 MG PO BID Tacrolimus (Tacrolimus), 4 MG PO BID Scheduled PRN Nitroglycerin (Nitrostat), 0.4 MG UT UD PRN for Chest Pain Review of Systems Ten point ROS performed with pertinent positives and negatives noted in HPI. Physical Exam Vital Signs Date Time Temp Pulse Resp B/P Pulse Ox O2 Delivery O2 Flow Rate FiO2 02/06/17 18:36 78 16 157/102 99 Room Air 02/06/17 17:52 99 Room Air 02/06/17 17:20 81 02/06/17 17:15 78 16 156/96 99 Nasal Cannula 4.0 02/06/17 17:01 Nasal Cannula 4.0 02/06/17 17:01 82 20 155/101 93 Room Air 02/06/17 16:45 79 16 157/95 95 Room Air 02/06/17 16:30 79 16 175/93 96 Room Air 02/06/17 16:17 94 16 157/107 96 Room Air 02/06/17 15:52 94 16 195/118 96 Room Air 02/06/17 14:55 96 Room Air 02/06/17 14:53 95 24 205/132 96 Room Air 02/06/17 13:59 36.9 60 20 201/134 96 Room Air General Appearance: + pertinent finding (alert 56 year old male, lying in bed, no distress) Head: normocephalic, atraumatic Eyes: normal inspection, PERRL, EOMI ENT: hearing grossly normal, pharynx normal Neck: supple, trachea midline, + pertinent finding (no neck stiffness, meningeal testing negative) Respiratory/Chest: lungs clear, normal breath sounds Cardiovascular: regular rate, rhythm, no murmur Abdomen/GI: normal bowel sounds, non tender, soft Extremities/Musculoskelatal: no calf tenderness, no pedal edema Neurologic/Psych: licensed nursing assistant II-XII nml as tested, no motor/sensory deficits ( strength 5/5 all extremities, sensation to light touch grossly intact all extremities), alert, normal mood/affect, oriented x 3, + pertinent finding (no pronator drift) Skin: normal color, warm/dry Diagnostics Laboratory Results Results Past 24 Hours Test 02/06/17 00:00 02/06/17 15:20 02/06/17 17:58 Range/Units Carboxyhemoglobin 2.7 % THgb White Blood Count 5.36 4.8-10.8 K/uL Red Blood Count 4.91 4.7-6.1 M/uL Hemoglobin 15.7 14.0-18.0 g/dL Hematocrit 45.4 42-52 % Mean Corpuscular Volume 92.5 80-100 fL Mean Corpuscular Hemoglobin 32.0 25-34 pg Mean Corpuscular Hemoglobin Concent 34.6 32-36 g/dl Platelet Count 145 130-400 K/uL Mean Platelet Volume 9.8 7.4-10.4 fL Neutrophils (%) (Auto) 72.7 % Lymphocytes (%) (Auto) 16.8 % Monocytes (%) (Auto) 7.8 % Eosinophils (%) (Auto) 2.1 % Basophils (%) (Auto) 0.2 % Neutrophils # (Auto) 3.90 1.4-6.5 K/uL Lymphocytes # (Auto) 0.90 1.2-3.4 K/uL Monocytes # (Auto) 0.42 0.11-0.59 K/uL Eosinophils # (Auto) 0.11 0-0.5 K/uL Basophils # (Auto) 0.01 0-0.2 K/uL RDW Standard Deviation 43.9 36.4-46.3 fL RDW Coefficient of Variation 12.9 11.5-14.5 % Immature Granulocyte % (Auto) 0.4 % Immature Granulocyte # (Auto) 0.02 0.00-0.02 K/uL Erythrocyte Sedimentation Rate 18 0-14 mm/hr Prothrombin Time 10.1 9.0-12.0 SECONDS Prothromb Time International Ratio 0.9 0.9-1.1 Activated Partial Thromboplast Time 27.2 21.0-31.0 SECONDS Partial Thromboplastin Ratio 1.0 Urine Color YELLOW Urine Appearance CLEAR CLEAR Urine pH >= 9.0 4.5-7.5 Urine Specific Union 1.013 1.000-1.030 Urine Protein NEG NEG Urine Glucose (UA) NEG NEG Urine Ketones NEG NEG Urine Occult Blood NEG NEG Urine Nitrite NEG NEG Urine Bilirubin NEG NEG Urine Urobilinogen NEG NEG Urine Leukocyte Esterase NEG NEG Urine WBC (Auto) 0 0-5 /hpf Urine RBC (Auto) 0-4 0-4 /hpf Urine Hyaline Casts (Auto) 0 0-5 /lpf Urine Epithelial Cells (Auto) 0-5 0-5 /lpf Urine Bacteria (Auto) NEG NEG Sodium Level 144 136-145 mmol/L Potassium Level 3.7 3.5-5.1 mmol/L Chloride Level 99 98-107 mmol/L Carbon Dioxide Level 42 21-32 mmol/L Anion Gap 3.0 3-11 mmol/L Blood Urea Nitrogen 18 7-18 mg/dl Creatinine 1.30 0.60-1.40 mg/dl Est Creatinine Clear Calc Drug Dose 72.0 ml/min Estimated GFR () 71.7 Estimated GFR (Non- 61.9 BUN/Creatinine Ratio 13.6 10-20 Random Glucose 145 70-99 mg/dl Calcium Level 8.4 8.5-10.1 mg/dl Magnesium Level 2.3 1.8-2.4 mg/dl Total Bilirubin 0.3 0.2-1 mg/dl Aspartate Amino Transf (AST/SGOT) 45 15-37 U/L Alanine Aminotransferase (ALT/SGPT) 58 12-78 U/L Alkaline Phosphatase 122 45-117 U/L Total Creatine Kinase 104 39-308 U/L Creatine Kinase MB 2.1 0.5-3.6 ng/ml Creatine Kinase MB Ratio 2.0 0-3.0 Troponin I 0.045 0-0.045 ng/ml C-Reactive Protein < 0.29 0-0.29 mg/dl Total Protein 7.3 6.4-8.2 gm/dl Albumin 3.8 3.4-5.0 gm/dl Globulin 3.5 2.5-4.0 gm/dl Albumin/Globulin Ratio 1.1 0.9-2 Lipase 162 73-393 U/L Thyroid Stimulating Hormone (TSH) 4.090 0.300-4.500 uIu/ml Chemistry Specimen Hemolysis Lyme Disease IgG Antibody NEG NEG Lyme Disease IgM Antibody NEG NEG Venous Blood pH 7.51 7.36-7.41 Venous Blood Partial Pressure CO2 51 38.0-50.0 mmHg Venous Blood Partial Pressure O2 61 mmHg Venous Blood HCO3 40 mmol/L Venous Blood Oxygen Saturation 90.7 % Venous Blood Base Excess 14.4 mmol/L Microbiology Results 02/06/17 Blood Culture, Dave Batch Pending 02/06/17 Blood Culture, Dave Batch Pending Diagnostic Radiology CT HEAD WITHOUT CONTRAST (CT) CLINICAL HISTORY: Headache COMPARISON STUDY: 05/26/2014 TECHNIQUE: Axial CT of the brain is performed from the vertex to the skull base. IV contrast was not administered for this examination. CT DOSE: 1755.62 mGy.cm FINDINGS: No intra or extra-axial mass lesions are visualized. There is no CT evidence of acute cortical infarction. There is no evidence of midline shift. There is no acute hemorrhage. No calvarial fractures are visualized. There is no evidence of pathologic ventricular dilatation. There is no evidence of acute sinusitis IMPRESSION: No acute intracranial findings CHEST ONE VIEW PORTABLE CLINICAL HISTORY: Atypical chest pain COMPARISON STUDY: 04/07/2016 FINDINGS: The heart is normal in size. There is no failure. There is no focal pulmonary consolidation. As a left subclavian dual-chamber central venous pacemaker present. There are postsurgical changes in the cervical spine. There is blunting of the left lateral costophrenic angle, possibly indicating a tiny effusion.[ IMPRESSION: Blunting of the left lateral costophrenic angle. Otherwise no acute findings. ABDOMEN AND PELVIS CT WITHOUT CONTRAST CT DOSE: HISTORY: Generalized abdominal pain. Right-sided flank pain. TECHNIQUE: Multiaxial CT images of the abdomen and pelvis were performed without the use of intravenous and oral contrast according to the standard department stone protocol. COMPARISON STUDY: Abdomen and pelvis CT 05/21/2010. FINDINGS: The lung bases are clear. Pacemaker wires are noted. No pneumoperitoneum. No pneumatosis. Patchy sclerosis with the right femoral head consistent with avascular necrosis. Posterior decompression and fusion from L2 through S1 with pedicle screws and rods. There is also a small focal area of sclerosis within the left femoral head which may also represent an area of avascular necrosis. No evidence for femoral head collapse. Old, healed left-sided rib fractures. Normal bladder. Normal appendix. Status post liver transplant. The gallbladder is surgically absent. The spleen remains enlarged but is decreased in size compared the prior study. The spleen measures 13.5 cm in length. The adrenal glands, pancreas, and kidneys are unremarkable. No renal stones or hydronephrosis. Decrease in size in the splenic varices. No retroperitoneal lymphadenopathy. Small fat-containing umbilical hernia. The umbilical varices have almost completely resolved. Suboptimal evaluation for bowel pathology due to the lack of intravenous and oral contrast. However, there is no evidence for bowel obstruction. Fluid-filled colon. Mild superior endplate compression deformity at L5 is likely old. IMPRESSION: 1. Fluid-filled colon. This favors a gastroenteritis. 2. No evidence for bowel obstruction. 3. Status post liver transplant with improvement in the abdominal varices and splenomegaly. 4. Bilateral femoral head avascular necrosis, right greater than left. No evidence for femoral head collapse. 5. Additional findings as described above. EKG atrial sensed ventricular paced rhythm, 95 bpm, when compared to prior EKG pacemaker has replaced sinus rhythm, as per cardiology read Impression Assessment and Plan HYPERTENSIVE URGENCY BP up to 200s/130s in ER; teated with nitro paste and labetalol -> improved to 150s/90s Likely due to missed meds for past 3 days Continue nitro paste Resume home dose of metoprolol and lisinopril CHEST PAIN Rule out ACS- MORALES score = 3; possibly due to hypertensive urgency History of known CAD s/p 2 stents in 04/2011 Negative stress test in 11/2015 Initial troponin negative EKG- no ischemic findings Trend serial cardiac enzymes Will give aspirin 324 mg Continue nitro paste Continue aspirin, beta crystal, WHITNEY-I, statin Consult cardiology- pt follows with [facility] cardiology HEADACHE Possibly due to hypertensive urgency CT head negative Carboxyhemoglobin WNL No focal neurological findings Treated with morphine in ER with minimal improvement Avoid acetaminophen due to liver disease; no NSAIDs due to CAD Try compazine and Benadryl LETHARGY Now alert and oriented; however reports sleeping for past 3 days Unclear etiology Elevated CO2 noted; VBG shows pCO2 of 51; carboxyhemoglobin is WNL CT head negative Denies drug use however h/o drug abuse listed in Epic Check urine drug screen GASTROENTERITIS Reports diarrhea x 2 days; recent abx CT abdomen- fluid filled colon, possibly gastroenteritis Check stool for C. diff, stool cx, WBC smear Clear liquid diet for now DM TYPE 2 Insulin sliding scale coverage Check A1c in am DYSLIPIDEMIA Continue statin Check fasting lipid panel in am CKD STAGE III Creat is 1.3; stable from baseline CIRRHOSIS DUE TO HEPATITIS C Complicated by HCC; s/p liver transplant on chronic immunosuppressants Resume azathioprine and tacrolimus HYPOTHYROIDISM TSH is WNL Continue levothyroxine DVT PROPHYLAXIS Lovenox SQ FULL CODE DISPOSITION Follows with Dr. Angeles for primary care Patient seen in collaboration with Dr. Bailey. Please see her addendum. Level of Care Telemetry Advanced Directives Existing Living Will: No Existing Power of Pulmonary Physical Therapist: No Resuscitation Status FULL RESUSCITATION VTE Prophylaxis VTE Risk Assessment Done? Y/N: Yes Risk Level: Moderate Given or contraindicated: Enoxaparin (Lovenox)SQ Note I have seen and examined the patient and discussed the case with the provider above. I agree with the assessment and plan as stated above. His history is interesting as there appears to be nothing to make him lethargic, with the diarrhea and symptoms occurring after the extreme fatigue. He has a h/p drug use but tox screen is negative and he denies recent drugs or alcohol use. He is not reporting infectious symptoms such as fevers or chills. He does have h/ o heart disease but this is not his index angina. Diarrhea was very sporadic and possibly only once per his history to me. Agree with pacemaker interrogation, which he reports was checked last year. Also, will stop nitro paste as this is likely worsening his headache. His CP is resolved after treatment in the ER with Nitro and morphine. BP is within normal range. TSH is normal. Trend cardiac enzymes overnight and Cards consulted to see him in am. DO Leo
[2017-02-06 20:00] VITALS: O2SAT 97
[2017-02-06] MEDS: INSULIN ASPART 100 UNITS/ML 3 ML PEN SC SCH (20:34)
[2017-02-06] MEDS: ENOXAPARIN 40 MG/0.4 ML SYR SQ SCH (21:15)
--- NOTE | 2017-02-06 21:29 | EMERGENCY ROOM VISIT NOTE ---
ED Visit Note First contact with patient: 14:47 I have personally evaluated and examined this patient. I agree with assessment and plan of Ahmet Tanner PA-C.
[2017-02-06 21:59] LABS: CKMB/CK RATIO 1.9 (0-3.0)
[2017-02-06 22:02] LABS: BENZODIAZEPINE, URINE NEG (NEG); COCAINE,URINE NEG (NEG); PHENCYCLIDINE, URINE NEG (NEG)
[2017-02-06 23:45] VITALS: BP 155/89; PULSE 77; TEMP 37; O2SAT 95
[2017-02-07] VITALS (9 sets, daily range): BP systolic 144–176; BP diastolic 86–114; PULSE 67–73; TEMP 36.7–36.9; O2SAT 91–98
[2017-02-07 03:05] LABS: CHOLESTEROL/HDL RATIO 1.9; CKMB/CK RATIO 2.3 (0-3.0)
[2017-02-07] MEDS ORDERED: IV FLUIDS COMPLETED PRN (05:00)
[2017-02-07 06:55] LABS: ESTIMATED AVERAGE GLUCOSE 137 mg/dl; HA1C FLAG Normal (Normal)
[2017-02-07] MEDS: INSULIN ASPART 100 UNITS/ML 3 ML PEN SC SCH ×4 (08:04→20:42)
[2017-02-07] MEDS ORDERED: CITALOPRAM 20 MG TAB PO ONE (09:25)
[2017-02-07] MEDS ORDERED: ASPIRIN 81 MG ECTAB PO ONE (09:25)
[2017-02-07] MEDS ORDERED: LEVOTHYROXINE 25 MCG TAB PO ONE (09:25)
[2017-02-07] MEDS ORDERED: LISINOPRIL 10 MG TAB PO ONE (09:25)
[2017-02-07] MEDS ORDERED: METOPROLOL TARTRATE 50 MG TAB PO ONE (09:25)
[2017-02-07] MEDS ORDERED: AZATHIOPRINE 50 MG TAB PO ONE (09:25)
[2017-02-07] MEDS ORDERED: ATORVASTATIN 20 MG TAB PO ONE (09:25)
[2017-02-07] MEDS ORDERED: TACROLIMUS 1 MG CAP PO ONE (09:25)
--- NOTE | 2017-02-07 09:29 | Clinical Documentation Query ---
CLINICAL DOCUMENTATION QUERY Dr. SAAVEDRA, In your clinical opinion is this patient being managed for: ( ) Hypertensive crisis ( X ) Other explanation of clinical findings (Please Explain) Possible Hypertensive crisis on admission ( ) Unable to determine (Please Define) ( ) Need to Discuss ( ) Not Agree The medical record reflects the following clinical findings, treatment, and risk factors. Clinical Indicators: 56 yo male presenting with chest pain and headaches. BP 201/134. Chest pain and headache are linked to possibly caused by HTN. Treatment: Nitropaste, cardiology consult, serial cardiac enzymes, IV normodyne, tele monitoring Risk Factors: medication noncompliance, CAD, CKD, HTN A hypertensive crisis occurs when blood pressure elevates rapidly and severely enough to potentially cause organ damage. Patients may present with symptoms of acute headache, shortness of breath, epistaxis, or marked anxiety. Immediate evaluation is needed to assess organ function, and determine appropriate treatment Please clarify and document your clinical opinion in the progress notes and discharge summary. Terms such as "probable", "suspected", "likely", "questionable", "possible", or "still to be ruled out" are acceptable. IF IN AGREEMENT, YOU MUST DOCUMENT ABOVE DIAGNOSTIC STATEMENT IN DAILY PROGRESS NOTES AND DISCHARGE SUMMARY. This document is not part of the patient's record. Thank You, Nury Abrams, RN [phone]
--- NOTE | 2017-02-07 09:45 | Progress Note ---
Medicine Progress Note Date & Time of Visit: Feb 07, 2017 at 09:37. Subjective patient states he feels fine overall headache improving denies chest pain, dyspnea, palpitations still feels sleepy denies abdominal pain, changes with urination or BMs no fever/chills denies other symptoms Objective Last 8 Hrs Date Time Temp Pulse Resp B/P Pulse Ox O2 Delivery O2 Flow Rate FiO2 02/07/17 08:00 Room Air 02/07/17 07:26 36.8 71 20 144/92 95 Room Air 02/07/17 04:00 98 Room Air 02/07/17 03:56 36.9 70 18 165/86 91 Room Air Physical Exam: General- oriented x 3, not in distress, speaks in sentences with no effort Head- atraumatic Eyes- PERRL, EOMI, anicteric ENT- oropharynx clear Neck- supple, no JVD, no adenopathy, no thyromegaly; carotids +2/2, no bruits appreciated Lungs- clear to auscultation bilaterally Heart- normal rate, regular rhythm; no murmurs Abdomen- normal bowel sounds, soft, nontender, no masses Extremities- no pretibial edema, no calf tenderness; peripheral pulses intact Neuro- alert, oriented x 3; PERRL, EOMI; no gross focal neuro deficit Skin- warm & dry Laboratory Results: Last 24 Hours Test 02/06/17 15:20 02/06/17 17:58 02/06/17 20:07 02/06/17 21:15 White Blood Count 5.36 K/uL Red Blood Count 4.91 M/uL Hemoglobin 15.7 g/dL Hematocrit 45.4 % Mean Corpuscular Volume 92.5 fL Mean Corpuscular Hemoglobin 32.0 pg Mean Corpuscular Hemoglobin Concent 34.6 g/dl Platelet Count 145 K/uL Mean Platelet Volume 9.8 fL Neutrophils (%) (Auto) 72.7 % Lymphocytes (%) (Auto) 16.8 % Monocytes (%) (Auto) 7.8 % Eosinophils (%) (Auto) 2.1 % Basophils (%) (Auto) 0.2 % Neutrophils # (Auto) 3.90 K/uL Lymphocytes # (Auto) 0.90 K/uL Monocytes # (Auto) 0.42 K/uL Eosinophils # (Auto) 0.11 K/uL Basophils # (Auto) 0.01 K/uL RDW Standard Deviation 43.9 fL RDW Coefficient of Variation 12.9 % Immature Granulocyte % (Auto) 0.4 % Immature Granulocyte # (Auto) 0.02 K/uL Erythrocyte Sedimentation Rate 18 mm/hr Prothrombin Time 10.1 SECONDS Prothromb Time International Ratio 0.9 Activated Partial Thromboplast Time 27.2 SECONDS Partial Thromboplastin Ratio 1.0 Urine Color YELLOW Urine Appearance CLEAR Urine pH >= 9.0 Urine Specific [place] 1.013 Urine Protein NEG Urine Glucose (UA) NEG Urine Ketones NEG Urine Occult Blood NEG Urine Nitrite NEG Urine Bilirubin NEG Urine Urobilinogen NEG Urine Leukocyte Esterase NEG Urine WBC (Auto) 0 /hpf Urine RBC (Auto) 0-4 /hpf Urine Hyaline Casts (Auto) 0 /lpf Urine Epithelial Cells (Auto) 0-5 /lpf Urine Bacteria (Auto) NEG Sodium Level 144 mmol/L Potassium Level 3.7 mmol/L Chloride Level 99 mmol/L Carbon Dioxide Level 42 mmol/L Anion Gap 3.0 mmol/L Blood Urea Nitrogen 18 mg/dl Creatinine 1.30 mg/dl Est Creatinine Clear Calc Drug Dose 72.0 ml/min Estimated GFR () 71.7 Estimated GFR (Non- 61.9 BUN/Creatinine Ratio 13.6 Random Glucose 145 mg/dl Calcium Level 8.4 mg/dl Magnesium Level 2.3 mg/dl Total Bilirubin 0.3 mg/dl Aspartate Amino Transf (AST/SGOT) 45 U/L Alanine Aminotransferase (ALT/SGPT) 58 U/L Alkaline Phosphatase 122 U/L Total Creatine Kinase 104 U/L 73 U/L Creatine Kinase MB 2.1 ng/ml 1.4 ng/ml Creatine Kinase MB Ratio 2.0 1.9 Troponin I 0.045 ng/ml 0.045 ng/ml C-Reactive Protein < 0.29 mg/dl Total Protein 7.3 gm/dl Albumin 3.8 gm/dl Globulin 3.5 gm/dl Albumin/Globulin Ratio 1.1 Lipase 162 U/L Thyroid Stimulating Hormone (TSH) 4.090 uIu/ml Chemistry Specimen Hemolysis Urine Opiates Screen NEG Urine Methadone, Qualitative NEG Urine Barbiturates NEG Urine Phencyclidine (PCP) Level NEG Ur Amphetamine/Methamphetamine NEG MDMA (Ecstasy) Screen NEG Urine Benzodiazepines Screen NEG Urine Cocaine Metabolite NEG Urine Marijuana (THC) NEG Lyme Disease IgG Antibody NEG Lyme Disease IgM Antibody NEG Venous Blood pH 7.51 Venous Blood Partial Pressure CO2 51 mmHg Venous Blood Partial Pressure O2 61 mmHg Venous Blood HCO3 40 mmol/L Venous Blood Oxygen Saturation 90.7 % Venous Blood Base Excess 14.4 mmol/L Bedside Glucose 102 mg/dl Test 02/07/17 02:35 02/07/17 06:20 Estimated Average Glucose 137 mg/dl Hemoglobin A1c 6.4 % Total Creatine Kinase 65 U/L Creatine Kinase MB 1.5 ng/ml Creatine Kinase MB Ratio 2.3 Troponin I 0.045 ng/ml Triglycerides Level 110 mg/dl Cholesterol Level 115 mg/dl HDL Cholesterol 61 mg/dl LDL Cholesterol, Calculated 32 mg/dl VLDL Cholesterol, Calculated 22 mg/dl Cholesterol/HDL Ratio 1.9 Bedside Glucose 107 mg/dl Date/Time Source Procedure Growth Status 02/06/17 19:35 Blood Blood Culture Pending Received 02/06/17 19:35 Blood Blood Culture Pending Received Assessment & Plan 56 year old male with history of CAD s/p Stent, Prolonged QT s/p Pacemaker, Hep C Cirrhosis s/p Liver Transplant on Imuran and Tacrolimus, DM, HTN, CKD 3 presenting with chest pain. HYPERTENSIVE URGENCY BP up to 200s/130s in ER Likely due to missed meds for past 3 days Resume home dose of metoprolol and lisinopril -- BP improving CHEST PAIN Rule out ACS- MORAELS score = 3; possibly due to hypertensive urgency History of known CAD s/p 2 stents in 04/2011 Negative stress test in 11/2015 EKG- no ischemic findings Cardiac markers negative Continue aspirin, beta crystal, WHITNEY-I, statin -- will consult [facility] Cardiology as Dr. Angeles was planning to refer the patient to them HEADACHE Possibly due to hypertensive urgency CT head negative Carboxyhemoglobin WNL -- resolving LETHARGY Now alert and oriented; however reports sleeping for past 3 days Unclear etiology Elevated CO2 noted; VBG shows pCO2 of 51; carboxyhemoglobin is WNL CT head negative Urine Drug Screen: negative -- check ammonia nocturnal pulse ox GASTROENTERITIS Reports diarrhea x 2 days; recent abx CT abdomen- fluid filled colon, possibly gastroenteritis Check stool for C. diff, stool cx, WBC smear Clear liquid diet for now -- improving DM TYPE 2 Insulin sliding scale coverage A1c 6.4 DYSLIPIDEMIA Continue statin LDL 32 CKD STAGE III Creat is 1.3; stable CIRRHOSIS DUE TO HEPATITIS C Complicated by HCC; s/p liver transplant on chronic immunosuppressants Resume azathioprine and tacrolimus HYPOTHYROIDISM TSH is WNL Continue levothyroxine BILATERAL AVASCULAR NECROSIS no changes with gait, no hip pain outpatient Ortho referral DVT PROPHYLAXIS Lovenox SQ FULL CODE DISPOSITION Follows with Dr. Angeles for primary care PT/OT eval Current Inpatient Medications: Current Inpatient Medications Medications (Trade) Dose Ordered Sig/Juanita Route Start Time Stop Time Status Last Admin Dose Admin Ondansetron HCl (Zofran Inj) 4 mg Q6H PRN IV 02/06/17 18:30 03/08/17 18:29 Insulin Aspart (novoLOG ASPART) SLIDING SCALE If C... ACHS SC 02/06/17 21:00 03/08/17 20:59 Glucose (Glucose 40% Gel) 15-30 GRAMS 15 GRAMS... UD PRN PO 02/06/17 18:45 03/08/17 18:44 Glucose (Glucose Chew Tab) 4-8 Tablets 4 Tabl... UD PRN PO 02/06/17 18:45 03/08/17 18:44 Dextrose (Dextrose 50% 50ML Syringe) 25-50ML OF 50% DW IV FOR... UD PRN IV 02/06/17 18:45 03/08/17 18:44 Glucagon (Glucagon Inj) 1 mg UD PRN SQ 02/06/17 18:45 03/08/17 18:44 Enoxaparin Sodium (Lovenox Inj) 40 mg QPM SQ 02/06/17 21:00 03/08/17 20:59 02/06/17 21:15 40 MG Miscellaneous (Iv Fluids Completed) 1 ea PRN PRN N/A 02/07/17 05:00 02/07/18 04:59 Aspirin (Ecotrin Tab) 81 mg DAILY PO 02/08/17 09:00 03/10/17 08:59 UNV Atorvastatin Calcium (Lipitor Tab) 20 mg QAM PO 02/08/17 09:00 03/10/17 08:59 UNV Azathioprine (Imuran Tab) 50 mg DAILY PO 02/08/17 09:00 03/10/17 08:59 UNV Citalopram Hydrobromide (celeXA TAB) 20 mg DAILY PO 02/08/17 09:00 03/10/17 08:59 UNV Levothyroxine Sodium (Synthroid Tab) 25 mcg DAILY PO 02/08/17 09:00 03/10/17 08:59 UNV Lisinopril (Zestril Tab) 10 mg DAILY PO 02/08/17 09:00 03/10/17 08:59 UNV Metoprolol Tartrate (Lopressor Tab) 50 mg BID PO 02/07/17 21:00 03/09/17 20:59 UNV Multivitamins (Multivitamin Tab) 1 tab DAILY PO 02/08/17 09:00 03/10/17 08:59 UNV Ranitidine HCl (zANTac TAB) 150 mg BID PO 02/07/17 21:00 03/09/17 20:59 UNV Tacrolimus (Prograf Cap) 4 mg BID PO 02/07/17 21:00 03/09/17 20:59 UNV Lisinopril (Zestril Tab) 10 mg 0925 ONCE PO 02/07/17 09:25 02/07/17 09:26 UNV Metoprolol Tartrate (Lopressor Tab) 50 mg 0925 ONCE PO 02/07/17 09:25 02/07/17 09:26 UNV Azathioprine (Imuran Tab) 50 mg 0925 ONCE PO 02/07/17 09:25 02/07/17 09:26 UNV Citalopram Hydrobromide (celeXA TAB) 20 mg 0925 ONCE PO 02/07/17 09:25 02/07/17 09:26 UNV Levothyroxine Sodium (Synthroid Tab) 25 mcg 0925 ONCE PO 02/07/17 09:25 02/07/17 09:26 UNV Aspirin (Ecotrin Tab) 81 mg 0925 ONCE PO 02/07/17 09:25 02/07/17 09:26 UNV Atorvastatin Calcium (Lipitor Tab) 20 mg 0925 ONCE PO 02/07/17 09:25 02/07/17 09:26 UNV Tacrolimus (Prograf Cap) 4 mg 0925 ONCE PO 02/07/17 09:25 02/07/17 09:26 UNV
[2017-02-07 10:27] LABS: BASO % 0.2 %; BASO ABS # 0.01 K/uL (0-0.2); COMPLETE YES; EOS % 2.6 %; HEMATOCRIT 41.7 % (42-52); IG% 0.2 %; LYMPH ABS # 1.08 K/uL (1.2-3.4); MEAN CORPUSCULAR HEMOGLOBIN 31.2 pg (25-34); MEAN CORPUSCULAR HGB CONC 32.9 g/dl (32-36); MEAN PLATELET VOLUME 9.8 fL (7.4-10.4); PLATELET COUNT 119 K/uL (130-400); RED BLOOD COUNT 4.39 M/uL (4.7-6.1); WHITE BLOOD COUNT 4.16 K/uL (4.8-10.8)
[2017-02-07 10:55] LABS: BUN/CREATININE RATIO 9.8 (10-20); CALCIUM 8.5 mg/dl (8.5-10.1); CREATININE 1.3 mg/dl (0.60-1.40); POTASSIUM 3.6 mmol/L (3.5-5.1)
--- NOTE | 2017-02-07 14:09 | CARDIOLOGY CONSULTATION ---
DATE OF CONSULTATION: 02/07/2017 [facility] REASON FOR CONSULTATION: Chest pain. HISTORY OF PRESENT ILLNESS: Mr. Montes is a 56-year-old male patient with a complex past medical history. He is status post liver transplant in August 2010 with a history of chronic hepatitis C and hepatocellular carcinoma. That transplant was performed at the [facility]. The patient also has a history of coronary artery disease and presented with an anterior wall myocardial infarction in 2010 and received bare metal stents within the LAD. He has a history of long QT syndrome and is status post dual-chamber pacemaker in May 2014. According to records, he had normal LV function by echocardiography in 2013. He does have a history of compliance problems. In the past, [facility] has [facility] but has lacked follow up with them. The patient presented to the Emergency Department with complaints of a headache, chest pain, he was noted to be markedly hypertensive. The patient apparently had been off his medications for several days. He had been experiencing some GI upset and diarrhea and may have had gastroenteritis. After admission, he has been placed back on his medications and he is feeling better. He has not had any additional chest pain. ALLERGIES: CODEINE. PAST MEDICAL HISTORY: As outlined in history of chief complaint. He has a history of coronary artery disease with previous stents in the LAD during an anterior wall myocardial infarction in 2010. He has a history of long QT syndrome and in 2013 had complete heart block requiring a dual-chamber pacemaker. He is status post liver transplant due to chronic hepatitis C and hepatocellular carcinoma. SOCIAL HISTORY: He is a cigarette smoker. FAMILY MEDICAL HISTORY: Significant for sister with long QT syndrome and implantable defibrillator. REVIEW OF SYSTEMS: As per the history of chief complaint. Otherwise, is negative. PHYSICAL EXAMINATION: GENERAL: He is alert and oriented. VITAL SIGNS: Blood pressure is 150/90, pulse is regular at 73. He is afebrile. HEENT: He is normocephalic. Pupils are equal and reactive to light. Extraocular muscles are intact bilaterally. NECK: The neck veins are flat. Carotids have good upstrokes bilaterally without bruits. Thyroid is not palpable. RESPIRATORY: Breath sounds equal bilaterally and clear to auscultation. CARDIOVASCULAR: Heart has a regular rhythm. Normal S1, S2. No S3, S4. No cardiac rubs or murmurs. GASTROINTESTINAL: Abdomen is soft, nontender without organomegaly. EXTREMITIES: Free of edema, digit clubbing, or cyanosis. NEUROLOGIC: Grossly intact. SKIN: Warm to touch. LYMPH NODES: Negative to palpation. LABORATORY DATA: Hemoglobin is 13.7, WBC count is 4.16, potassium is 3.7, creatinine is 1.3. TSH is 4.09. Cardiac troponins are negative. EKG reveals atrial sensed and ventricular paced rhythm. Pacemaker interrogation reveals adequate battery life and no changes were made to the programming. IMPRESSION: 1. Status post liver transplant for chronic hepatitis C and hepatocellular carcinoma. 2. Medication compliance. 3. Stable coronary artery disease with prior coronary stents in the LAD in 2010. 4. Long QT syndrome. 5. Status post permanent pacemaker for complete heart block. RECOMMENDATIONS: The patient presented with hypertensive urgency and may have been the etiology of his headache as well as his chest pain. He had not taken his medications for several days. He is now back on his medications and his blood pressure is better. As a result, he is feeling better. At this point, I would not recommend any additional cardiac workup or testing. His cardiac markers are negative. I would make sure that his blood pressure is well controlled and he remains on his antirejection drugs. Post discharge he will [facility] at [facility].
[2017-02-07] MEDS: METOPROLOL TARTRATE 50 MG TAB PO SCH (19:37)
[2017-02-07] MEDS: TACROLIMUS 1 MG CAP PO SCH (19:37)
[2017-02-07] MEDS: RANITIDINE HCL 150 MG TAB PO SCH (19:37)
[2017-02-07] MEDS: ENOXAPARIN 40 MG/0.4 ML SYR SQ SCH (19:38)
[2017-02-08] VITALS (7 sets, daily range): BP systolic 143–170; BP diastolic 78–98; PULSE 62–70; TEMP 36.4–36.8; O2SAT 95–97
[2017-02-08] MEDS ORDERED: LEVOTHYROXINE 25 MCG TAB PO SCH (06:00)
[2017-02-08 07:09] LABS: BASO % 0.2 %; BASO ABS # 0.01 K/uL (0-0.2); COMPLETE YES; EOS % 2.6 %; HEMATOCRIT 42.8 % (42-52); IG% 0.6 %; LYMPH % 30.5 %; MEAN CELL VOLUME 95.5 fL (80-100); MEAN CORPUSCULAR HEMOGLOBIN 32.1 pg (25-34); MEAN CORPUSCULAR HGB CONC 33.6 g/dl (32-36); MEAN PLATELET VOLUME 10.3 fL (7.4-10.4); NEUT % 54.1 %; PLATELET COUNT 130 K/uL (130-400); RED BLOOD COUNT 4.48 M/uL (4.7-6.1); WHITE BLOOD COUNT 4.92 K/uL (4.8-10.8)
[2017-02-08 07:42] LABS: BUN/CREATININE RATIO 12.9 (10-20); CALCIUM 8.9 mg/dl (8.5-10.1); CREATININE 1.4 mg/dl (0.60-1.40); POTASSIUM 3.8 mmol/L (3.5-5.1)
[2017-02-08] MEDS: RANITIDINE HCL 150 MG TAB PO SCH (08:45)
[2017-02-08] MEDS: METOPROLOL TARTRATE 50 MG TAB PO SCH (08:45)
[2017-02-08] MEDS: TACROLIMUS 1 MG CAP PO SCH (08:45)
[2017-02-08] MEDS: INSULIN ASPART 100 UNITS/ML 3 ML PEN SC SCH ×2 (08:48→11:56)
[2017-02-08] MEDS ORDERED: LISINOPRIL 10 MG TAB PO SCH (09:00)
[2017-02-08] MEDS ORDERED: ASPIRIN 81 MG ECTAB PO SCH (09:00)
[2017-02-08] MEDS ORDERED: AZATHIOPRINE 50 MG TAB PO SCH (09:00)
[2017-02-08] MEDS ORDERED: CITALOPRAM 20 MG TAB PO SCH (09:00)
[2017-02-08] MEDS ORDERED: ATORVASTATIN 20 MG TAB PO SCH (09:00)
[2017-02-08] MEDS ORDERED: MULTIVITAMIN TAB PO SCH (09:00)
--- NOTE | 2017-02-08 15:26 | Progress Note ---
Medicine Progress Note Date & Time of Visit: Feb 08, 2017 at 15:17. Subjective patient states he feels much better today denies headache, chest pain, dyspnea, dizziness ambulates with no problems no drowsiness states he is back to baseline denies other symptoms states he is ready and would like to be discharged today Objective Last 8 Hrs Date Time Temp Pulse Resp B/P Pulse Ox O2 Delivery O2 Flow Rate FiO2 02/08/17 12:39 146/78 02/08/17 12:00 Room Air 02/08/17 11:12 36.6 70 18 170/98 97 Room Air 02/08/17 08:07 36.5 62 18 164/95 97 Room Air 02/08/17 08:00 Room Air Physical Exam: General- oriented x 3, not in distress Eyes- anicteric Neck- supple, no JVD Lungs- clear to auscultation bilaterally, no rales/wheezes Heart- normal rate, regular rhythm; no murmurs Abdomen- normal bowel sounds, soft, nontender Extremities- no pretibial edema, no calf tenderness; peripheral pulses intact Neuro- alert, oriented x 3; PERRL, EOMI; no gross focal neuro deficit Skin- warm & dry Laboratory Results: Last 24 Hours Test 02/07/17 16:07 02/07/17 20:18 02/08/17 06:43 02/08/17 06:46 Bedside Glucose 101 mg/dl 102 mg/dl 86 mg/dl White Blood Count 4.92 K/uL Red Blood Count 4.48 M/uL Hemoglobin 14.4 g/dL Hematocrit 42.8 % Mean Corpuscular Volume 95.5 fL Mean Corpuscular Hemoglobin 32.1 pg Mean Corpuscular Hemoglobin Concent 33.6 g/dl Platelet Count 130 K/uL Mean Platelet Volume 10.3 fL Neutrophils (%) (Auto) 54.1 % Lymphocytes (%) (Auto) 30.5 % Monocytes (%) (Auto) 12.0 % Eosinophils (%) (Auto) 2.6 % Basophils (%) (Auto) 0.2 % Neutrophils # (Auto) 2.66 K/uL Lymphocytes # (Auto) 1.50 K/uL Monocytes # (Auto) 0.59 K/uL Eosinophils # (Auto) 0.13 K/uL Basophils # (Auto) 0.01 K/uL RDW Standard Deviation 45.0 fL RDW Coefficient of Variation 12.9 % Immature Granulocyte % (Auto) 0.6 % Immature Granulocyte # (Auto) 0.03 K/uL Sodium Level 140 mmol/L Potassium Level 3.8 mmol/L Chloride Level 105 mmol/L Carbon Dioxide Level 31 mmol/L Anion Gap 4.0 mmol/L Blood Urea Nitrogen 18 mg/dl Creatinine 1.40 mg/dl Est Creatinine Clear Calc Drug Dose 65.9 ml/min Estimated GFR () 65.6 Estimated GFR (Non- 56.6 BUN/Creatinine Ratio 12.9 Random Glucose 94 mg/dl Calcium Level 8.9 mg/dl Test 02/08/17 11:34 Bedside Glucose 98 mg/dl Assessment & Plan 56 year old male with history of CAD s/p Stent, Prolonged QT s/p Pacemaker, Hep C Cirrhosis s/p Liver Transplant on Imuran and Tacrolimus, DM, HTN, CKD 3 presenting with chest pain. HYPERTENSIVE URGENCY possible HYPERTENSIVE CRISIS on admission BP up to 200s/130s in ER Likely due to missed meds for past 3 days Resumes home dose of metoprolol and lisinopril -- BP improving systolic 150s -- increase Lisinopril to 20mg po daily monitor bp as outpatient -- patient counseled on importance of adhering to medications CHEST PAIN, ACS RULED OUT possibly due to hypertensive urgency History of known CAD s/p 2 stents in 04/2011 Negative stress test in 11/2015 EKG- no ischemic findings Cardiac markers negative Continue aspirin, beta crystal, WHITNEY-I, statin -- Cardiology consulted, Dr. Smith no further testing recommended at this point HEADACHE Possibly due to hypertensive urgency CT head negative Carboxyhemoglobin WNL -- resolved LETHARGY, Resolved alert and oriented; however reports sleeping for past 3 days Unclear etiology Elevated CO2 noted; VBG shows pCO2 of 51; carboxyhemoglobin is WNL CT head negative Urine Drug Screen: negative -- ammonia: 33 (normal value 32) nocturnal pulse ox: no hypoxia at night GASTROENTERITIS Reports diarrhea x 2 days; recent abx CT abdomen- fluid filled colon, possibly gastroenteritis - resolved DM TYPE 2 Insulin sliding scale coverage A1c 6.4 DYSLIPIDEMIA Continue statin LDL 32 CKD STAGE III Creat is 1.3; stable CIRRHOSIS DUE TO HEPATITIS C Complicated by HCC; s/p liver transplant on chronic immunosuppressants Resume azathioprine and tacrolimus HYPOTHYROIDISM TSH is WNL Continue levothyroxine BILATERAL AVASCULAR NECROSIS seen on CT abdomen/pelvis: IMPRESSION: 1. Fluid-filled colon. This favors a gastroenteritis. 2. No evidence for bowel obstruction. 3. Status post liver transplant with improvement in the abdominal varices and splenomegaly. 4. Bilateral femoral head avascular necrosis, right greater than left. No evidence for femoral head collapse. no changes with gait, no hip pain outpatient Ortho referral DVT PROPHYLAXIS Lovenox SQ given FULL CODE DISPOSITION d/c home with home health services PCP ff up in 1 week Current Inpatient Medications: Current Inpatient Medications Medications (Trade) Dose Ordered Sig/Juanita Route Start Time Stop Time Status Last Admin Dose Admin Ondansetron HCl (Zofran Inj) 4 mg Q6H PRN IV 02/06/17 18:30 03/08/17 18:29 Insulin Aspart (novoLOG ASPART) SLIDING SCALE If C... ACHS SC 02/06/17 21:00 03/08/17 20:59 02/08/17 11:56 4 UNITS Glucose (Glucose 40% Gel) 15-30 GRAMS 15 GRAMS... UD PRN PO 02/06/17 18:45 03/08/17 18:44 Glucose (Glucose Chew Tab) 4-8 Tablets 4 Tabl... UD PRN PO 02/06/17 18:45 03/08/17 18:44 Dextrose (Dextrose 50% 50ML Syringe) 25-50ML OF 50% DW IV FOR... UD PRN IV 02/06/17 18:45 03/08/17 18:44 Glucagon (Glucagon Inj) 1 mg UD PRN SQ 02/06/17 18:45 03/08/17 18:44 Enoxaparin Sodium (Lovenox Inj) 40 mg QPM SQ 02/06/17 21:00 03/08/17 20:59 02/07/17 19:38 40 MG Miscellaneous (Iv Fluids Completed) 1 ea PRN PRN N/A 02/07/17 05:00 02/07/18 04:59 Aspirin (Ecotrin Tab) 81 mg DAILY PO 02/08/17 09:00 03/10/17 08:59 02/08/17 08:44 81 MG Atorvastatin Calcium (Lipitor Tab) 20 mg QAM PO 02/08/17 09:00 03/10/17 08:59 02/08/17 08:46 20 MG Azathioprine (Imuran Tab) 50 mg DAILY PO 02/08/17 09:00 03/10/17 08:59 02/08/17 08:45 50 MG Citalopram Hydrobromide (celeXA TAB) 20 mg DAILY PO 02/08/17 09:00 03/10/17 08:59 02/08/17 08:44 20 MG Levothyroxine Sodium (Synthroid Tab) 25 mcg DAILYBB PO 02/08/17 06:00 03/10/17 05:59 02/08/17 05:14 25 MCG Lisinopril (Zestril Tab) 10 mg DAILY PO 02/08/17 09:00 03/10/17 08:59 02/08/17 08:46 10 MG Metoprolol Tartrate (Lopressor Tab) 50 mg BID PO 02/07/17 21:00 03/09/17 20:59 02/08/17 08:45 50 MG Multivitamins (Multivitamin Tab) 1 tab DAILY PO 02/08/17 09:00 03/10/17 08:59 02/08/17 08:45 1 TAB Ranitidine HCl (zANTac TAB) 150 mg BID PO 02/07/17 21:00 03/09/17 20:59 02/08/17 08:45 150 MG Tacrolimus (Prograf Cap) 4 mg BID PO 02/07/17 21:00 03/09/17 20:59 02/08/17 08:45 4 MG
[2017-02-08] MEDS ORDERED: LSN20 PO (15:28)
--- NOTE | 2017-02-08 15:33 | Discharge Instructions ---
Discharge Instructions Date of Service Feb 08, 2017. Admission Reason for Admission: Hypertensive Urgency Discharge Discharge Diagnosis / Problem: HYPERTENSIVE URGENCY Discharge Goals Goal(s): Diagnostic testing, Therapeutic intervention Activity Recommendations Activity Limitations: as noted below (NO HEAVY EXERTION UNTIL RE-EVALUATED BY PRIMARY CARE PHYSICIAN) . Instructions / Follow-Up Instructions / Follow-Up PLEASE CALL PRIMARY CARE PHYSICIAN OR RETURN TO ER IMMEDIATELY IF WITH RECURRENCE OF SYMPTOMS, DIZZINESS, WEAKNESS. LISINOPRIL HAS BEEN INCREASED TO 20MG BY MOUTH DAILY. PLEASE TAKE YOUR MEDICATIONS REGULARLY PRESCRIBED. FOLLOW UP WITH DR. TRUONG ON TUESDAY FEBRUARY 14, 2017 AT 12:55PM. Current Hospital Diet Patient's current hospital diet: AHA Diet (Heart Healthy), Diabetes Type 2 Diet Discharge Diet Recommended Diet: AHA Diet (Heart Healthy), Diabetes Type 2 Diet Pending Studies Studies pending at discharge: no Laboratory Results Hemoglobin A1c Test 02/07/17 02:35 Range/Units Estimated Average Glucose 137 mg/dl Hemoglobin A1c 6.4 H 4.5-5.6 % Lipid Panel Test 02/07/17 02:35 Range/Units Triglycerides Level 110 0-150 mg/dl Cholesterol Level 115 0-200 mg/dl HDL Cholesterol 61 mg/dl Cholesterol/HDL Ratio 1.9 LDL Cholesterol, Calculated 32 mg/dl Medical Emergencies . Who to Call and When: Medical Emergencies: If at any time you feel your situation is an emergency, please call 911 immediately. . Non-Emergent Contact Non-Emergency issues call your: Primary Care Provider Call Non-Emergent contact if: you have any medication questions . Past History Medical & Surgical History: (1) Hepatitis C, chronic (2) Cirrhosis of liver (3) Pacemaker (4) CKD (chronic kidney disease), stage III (5) Dyslipidemia (6) Long QT syndrome (7) Lumbago (8) Complete heart block (9) Symptomatic bradycardia (10) Hyperkalemia (11) DM type 2 (diabetes mellitus, type 2) (12) Hepatocellular carcinoma (13) Hypertensive urgency (14) Headache (15) Hypertension (16) Chest pain (17) S/P liver transplant (18) S/P coronary artery stent placement (19) History of back surgery (20) H/O neck surgery . "Provider Documentation" section prepared by Gagan Guzmán. . VTE Core Measure Inpt VTE Proph given/why not?: Enoxaparin (Lovenox)SQ
--- NOTE | 2017-02-08 15:38 | Discharge Summary ---
Discharge Summary Date of Service Feb 08, 2017. Discharge Summary Admission Date: Feb 06, 2017 at 18:27 Discharge Date: Feb 08, 2017 Discharge Disposition: Home with services Principal Diagnosis: HYPERTENSIVE URGENCY Secondary Diagnoses/Problems: Please refer to hospital course below. Procedures: ABDOMEN AND PELVIS CT WITHOUT CONTRAST CT DOSE: HISTORY: Generalized abdominal pain. Right-sided flank pain. TECHNIQUE: Multiaxial CT images of the abdomen and pelvis were performed without the use of intravenous and oral contrast according to the standard department stone protocol. COMPARISON STUDY: Abdomen and pelvis CT 05/21/2010. FINDINGS: The lung bases are clear. Pacemaker wires are noted. No pneumoperitoneum. No pneumatosis. Patchy sclerosis with the right femoral head consistent with avascular necrosis. Posterior decompression and fusion from L2 through S1 with pedicle screws and rods. There is also a small focal area of sclerosis within the left femoral head which may also represent an area of avascular necrosis. No evidence for femoral head collapse. Old, healed left-sided rib fractures. Normal bladder. Normal appendix. Status post liver transplant. The gallbladder is surgically absent. The spleen remains enlarged but is decreased in size compared the prior study. The spleen measures 13.5 cm in length. The adrenal glands, pancreas, and kidneys are unremarkable. No renal stones or hydronephrosis. Decrease in size in the splenic varices. No retroperitoneal lymphadenopathy. Small fat-containing umbilical hernia. The umbilical varices have almost completely resolved. Suboptimal evaluation for bowel pathology due to the lack of intravenous and oral contrast. However, there is no evidence for bowel obstruction. Fluid-filled colon. Mild superior endplate compression deformity at L5 is likely old. IMPRESSION: 1. Fluid-filled colon. This favors a gastroenteritis. 2. No evidence for bowel obstruction. 3. Status post liver transplant with improvement in the abdominal varices and splenomegaly. 4. Bilateral femoral head avascular necrosis, right greater than left. No evidence for femoral head collapse. 5. Additional findings as described above. Consultations: [facility] Dr. Smith Pending Studies/Follow-Up: Lisinopril increased to 20mg daily, please monitor BP; (+) Avascular Necrosis on CT pelvis, consider Ortho referral. Please refer to hospital course below for further details. Medication Reconciliation New Medications: Lisinopril (Lisinopril) 20 Mg Tab 1 TAB PO DAILY for 30 Days, #30 TABS 1 Refill Continued Medications: Aspirin (Ecotrin Low Strength) 81 Mg Tab 1 TAB PO DAILY for 90 Days, #90 TAB 3 Refills Atorvastatin (Lipitor) 20 Mg Tab 20 MG PO QAM, TAB Azathioprine (Imuran) 50 Mg Tab 50 MG PO DAILY, TAB Citalopram Hydrobromide (Celexa) 20 Mg Tab 20 MG PO DAILY, TAB Levothyroxine Sodium (Levothyroxine Sodium) 25 Mcg Tab 25 MCG PO DAILY, TAB Metoprolol Tartrate (Lopressor) (Lopressor) 50 Mg Tab 50 MG PO BID, TAB Multivitamin (Multivitamin) Tab 1 TAB PO DAILY, TAB Nitroglycerin (Nitrostat) 0.4 Mg/1 Tab Subl 0.4 MG UT UD PRN for Chest Pain Ranitidine (Zantac) 150 Mg Tab 150 MG PO BID, TAB Tacrolimus (Tacrolimus) 1 Mg Cap 4 MG PO BID Discontinued Medications: Lisinopril (Zestril) 10 Mg Tab 10 MG PO DAILY, TAB Admission Information HPI (per Admitting provider): This is a 56 year old male with PMH of CAD s/p stent in 2010, long QT syndrome, s/p pacemaker, h/o hepatitis C resulting in cirrhosis complicated by HCC s/p liver transplant, hyperlipidemia, DM type 2, CKD stage III, who presents to the ED with chest pain and headache. Patient states he was sleeping for past 3 days and only got up to drink water. He did not take his medications for past 3 days. He was feeling normal before 3 days ago. Then yesterday he awoke with headache and chest pain. Pt states PORTER is worse than chest pain. PORTER is located in frontal and behind the bilateral orbits initially rated 10/10 now rated 9/10 after morphine given in ER. Denies prior PORTER's. He did not take medication for it at home. Pt reports left sided chest pain described as "sharp" and "tight" which is nonradiating. Not related to exertion. He thinks nitro paste in ER may have helped. Chest pain is now 5/10. Pt reports associated diaphoresis. Pt reports multiple episodes of liquid diarrhea yesterday and once today. Had abdominal cramping which was relieved with BM. Feeling mildly nauseous without vomiting. SOB is unchanged from baseline. Denies dizziness, vision change, weakness, numbness, speech difficulty, URI symptoms, cough, vomiting, hematochezia, melena, dysuria, frequency, edema, calf pain. He admits to using a space heater in his apartment. Pt was on antibiotics 1 month ago for infected skin cyst. No recent travel or sick contact. Pt was hospitalized back in Nov 2015 for chest pain, was seen by cardiology, had negative stress test. 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 HYPERTENSIVE URGENCY possible Hypertensive Crisis on admission BP up to 200s/130s in ER Likely due to missed meds for past 3 days Resumes home dose of metoprolol and lisinopril -- BP improving systolic 150s -- increase Lisinopril to 20mg po daily monitor bp as outpatient -- patient counseled on importance of adhering to medications CHEST PAIN, ACS RULED OUT possibly due to hypertensive urgency History of known CAD s/p 2 stents in 04/2011 Negative stress test in 11/2015 EKG- no ischemic findings Cardiac markers negative Continue aspirin, beta crystal, WHITNEY-I, statin -- Cardiology consulted, Dr. Smith no further testing recommended at this point HEADACHE, Resolved Possibly due to hypertensive urgency CT head negative Carboxyhemoglobin WNL -- resolved LETHARGY, Resolved alert and oriented; however reports sleeping for past 3 days Unclear etiology Elevated CO2 noted; VBG shows pCO2 of 51; carboxyhemoglobin is WNL CT head negative Urine Drug Screen: negative -- ammonia: 33 (normal value 32) nocturnal pulse ox: no hypoxia at night GASTROENTERITIS Reports diarrhea x 2 days; recent abx CT abdomen- fluid filled colon, possibly gastroenteritis - resolved DM TYPE 2 Insulin sliding scale coverage A1c 6.4 DYSLIPIDEMIA Continue statin LDL 32 CKD STAGE III Creat is 1.3; stable CIRRHOSIS DUE TO HEPATITIS C Complicated by HCC; s/p liver transplant on chronic immunosuppressants Resume azathioprine and tacrolimus HYPOTHYROIDISM TSH is WNL Continue levothyroxine BILATERAL AVASCULAR NECROSIS seen on CT abdomen/pelvis: IMPRESSION: 1. Fluid-filled colon. This favors a gastroenteritis. 2. No evidence for bowel obstruction. 3. Status post liver transplant with improvement in the abdominal varices and splenomegaly. 4. Bilateral femoral head avascular necrosis, right greater than left. No evidence for femoral head collapse. no changes with gait, no hip pain outpatient Ortho referral DVT PROPHYLAXIS Lovenox SQ given FULL CODE DISPOSITION d/c home with home health services PCP ff up in 1 week Total time spent on discharge = 35 minutes This includes examination of the patient, discharge planning, medication reconciliation, and communication with other providers. Discharge Instructions Discharge Instructions Date of Service Feb 08, 2017. Admission Reason for Admission: Hypertensive Urgency Discharge Discharge Diagnosis / Problem: HYPERTENSIVE URGENCY Discharge Goals Goal(s): Diagnostic testing, Therapeutic intervention Activity Recommendations Activity Limitations: as noted below (NO HEAVY EXERTION UNTIL RE-EVALUATED BY PRIMARY CARE PHYSICIAN) . Instructions / Follow-Up Instructions / Follow-Up PLEASE CALL PRIMARY CARE PHYSICIAN OR RETURN TO ER IMMEDIATELY IF WITH RECURRENCE OF SYMPTOMS, DIZZINESS, WEAKNESS. LISINOPRIL HAS BEEN INCREASED TO 20MG BY MOUTH DAILY. PLEASE TAKE YOUR MEDICATIONS REGULARLY PRESCRIBED. FOLLOW UP WITH DR. TRUONG ON TUESDAY FEBRUARY 14, 2017 AT 12:55PM. Current Hospital Diet Patient's current hospital diet: AHA Diet (Heart Healthy), Diabetes Type 2 Diet Discharge Diet Recommended Diet: AHA Diet (Heart Healthy), Diabetes Type 2 Diet Pending Studies Studies pending at discharge: no Laboratory Results Hemoglobin A1c Test 02/07/17 02:35 Range/Units Estimated Average Glucose 137 mg/dl Hemoglobin A1c 6.4 H 4.5-5.6 % Lipid Panel Test 02/07/17 02:35 Range/Units Triglycerides Level 110 0-150 mg/dl Cholesterol Level 115 0-200 mg/dl HDL Cholesterol 61 mg/dl Cholesterol/HDL Ratio 1.9 LDL Cholesterol, Calculated 32 mg/dl Medical Emergencies . Who to Call and When: Medical Emergencies: If at any time you feel your situation is an emergency, please call 911 immediately. . Non-Emergent Contact Non-Emergency issues call your: Primary Care Provider Call Non-Emergent contact if: you have any medication questions . Past History Medical & Surgical History: (1) Hepatitis C, chronic (2) Cirrhosis of liver (3) Pacemaker (4) CKD (chronic kidney disease), stage III (5) Dyslipidemia (6) Long QT syndrome (7) Lumbago (8) Complete heart block (9) Symptomatic bradycardia (10) Hyperkalemia (11) DM type 2 (diabetes mellitus, type 2) (12) Hepatocellular carcinoma (13) Hypertensive urgency (14) Headache (15) Hypertension (16) Chest pain (17) S/P liver transplant (18) S/P coronary artery stent placement (19) History of back surgery (20) H/O neck surgery . "Provider Documentation" section prepared by Gagan Guzmán. . VTE Core Measure Inpt VTE Proph given/why not?: Enoxaparin (Lovenox)SQ
== END 2017-02-08 16:28 | disposition home or self-care (01) | DRG 392 ==
LOC: ENRESERVTM → ENRESERVDT → C.EDB 13:59 → C.2T 18:27
PROVIDERS: ADMIT Hospitalist; ATTEND Internal Medicine
DX: K52.9 Noninfective gastroenteritis and colitis, unspecified (principal); Z94.4 Liver transplant status; M87.9 Osteonecrosis, unspecified; R07.9 Chest pain, unspecified; R51 Headache; R53.83 Other fatigue; I16.0 Hypertensive urgency; I25.10 Atherosclerotic heart disease of native coronary artery without angina pectoris; I45.81 Long QT syndrome; E78.5 Hyperlipidemia, unspecified; I12.9 Hypertensive chronic kidney disease with stage 1 through stage 4 chronic kidney disease, or unspecified chronic kidney disease; E11.22 Type 2 diabetes mellitus with diabetic chronic kidney disease; N18.3 Chronic kidney disease, stage 3 (moderate); B18.2 Chronic viral hepatitis C; E03.9 Hypothyroidism, unspecified; F17.200 Nicotine dependence, unspecified, uncomplicated; I25.2 Old myocardial infarction; Z91.14 Patient's other noncompliance with medication regimen; Z95.5 Presence of coronary angioplasty implant and graft; Z95.0 Presence of cardiac pacemaker; Z98.1 Arthrodesis status; Z79.82 Long term (current) use of aspirin; Z79.899 Other long term (current) drug therapy